=== PATIENT | female | born 1940 | race American Indian/Alaskan Native ===

== ENCOUNTER 2017-05-30 08:28 | Outpatient (CLI) | payer MEDICARE ==
--- NOTE | 2017-05-30 09:41 | XRay Report ---
Left shoulder 2 views: History: Shoulder pain. Findings: There is comminuted fracture noted neck of left humerus. No dislocation at the glenohumeral joint. Impression: Comminuted fracture neck of left humerus.
--- NOTE | 2017-05-30 09:42 | XRay Report ---
Left forearm: History: Left forearm pain. Findings: No fracture periosteal reaction lytic lesion. Impression: Essentially negative left forearm.
--- NOTE | 2017-05-30 09:43 | XRay Report ---
Left elbow 2 views: History: Elbow pain. Findings: No articular abnormality. No fracture dislocation or soft tissue calcification. Impression: Essentially negative left elbow.
--- NOTE | 2017-05-30 09:44 | XRay Report ---
Left wrist 3 views: History: Pain. Findings: There is arthritic change is noted in the first carpometacarpal joint. The radiocarpal joint appears unremarkable. No significant arthritic arthritic changes of the intercarpal joints. No soft tissue calcification. Impression: Arthritic changes in the first carpometacarpal joint.
== END 2017-05-30 08:29 | disposition home or self-care (01) ==
LOC: SPVIMAG 08:28
PROVIDERS: ATTEND Orthopaedic Surgery
DX: S42.212A Unspecified displaced fracture of surgical neck of left humerus, initial encounter for closed fracture (principal); M18.9 Osteoarthritis of first carpometacarpal joint, unspecified; M25.522 Pain in left elbow; M79.632 Pain in left forearm; X58.XXXA Exposure to other specified factors, initial encounter; Y93.89 Activity, other specified; Y92.89 Other specified places as the place of occurrence of the external cause; Y99.8 Other external cause status

== ENCOUNTER 2018-04-21 15:18 | Outpatient (CLI) | payer MEDICARE ==
--- NOTE | 2018-04-21 18:45 | Vascular Lab Report ---
FINAL REPORT EXAM: VL VENOUS DUPLEX LE LT HISTORY: DVT, LEFT LEG ACUTE EMB 77-year-old female with swelling in left foot, calf edema Comparison: None TECHNIQUE: Longitudinal and transverse grayscale, color, and Doppler sonographic images of the left lower extremity were performed from the groin to the infrapopliteal region. FINDINGS: The deep venous system is anechoic with normal respiratory variability and augmentation at all levels from the groin to the popliteal region. The infrapopliteal region is difficult to see due to edema w ithin the superficial calf vasculature. There are echogenic foci along the slade of the proximal greater saphenous vein. The saphenofemoral junction is clear. IMPRESSION: No acute left lower extremity deep venous thrombosis from the groin to the popliteal region. The infr apopliteal region is obscured by superficial calf edema. Echogenic foci along the proximal greater saphenous vein slade suggestive of recanalized or old throm bus with calcification of the slade. Saphenofemoral junction is clear.
== END 2018-04-21 15:19 | disposition home or self-care (01) ==
LOC: VAS 15:18
PROVIDERS: ATTEND Podiatrist Foot Surgery
DX: I82.4Z2 Acute embolism and thrombosis of unspecified deep veins of left distal lower extremity (principal); R60.9 Edema, unspecified; I10 Essential (primary) hypertension; Z87.891 Personal history of nicotine dependence

== ENCOUNTER 2019-08-13 19:32 | Emergency (ER) | payer MEDICARE ==
--- NOTE | 2019-08-13 20:19 | Emergency Department Report ---
ED General Adult HPI - General Chief complaint: Extremity Problem,Nontraumatic Stated complaint: EDEMA,LOWER EXTREMITES PUI?: No Time Seen by Provider: 08/13/19 20:04 Source: patient, EMS ( EMS documentation not available at time of chart dictation ), RN notes reviewed Mode of arrival: Stretcher Limitations: Physical Limitation - History of Present Illness Initial comments: Primary care doctor: Dr. Garcia The patient is a pleasant 79-year-old female with a history of hypertension, presenting to the ER today with complaints of nontraumatic painless bilateral lower extremity, present x1 month. She endorses that her primary care doctor discontinued her Lasix therapy. She denies recent travel, surgery, and prolonged immobilization. She denies physical pain at this time. There is no complaint of headache, neck pain, chest pain, abdominal pain, shortness of breath, urinary symptoms, and she denies hematemesis and bright red blood per rectum. Bilateral lower extremity swelling has been constant, does not radiate anywhere, does not have exacerbating or relieving factors that she is aware of. -: Gradual Location: left, right, lower extremity Consistency: constant Improves with: none Worsens with: none Associated Symptoms: denies other symptoms - Related Data Home Medications Medication Instructions Recorded Confirmed Last Taken hydrALAZINE [Apresoline] 50 mg PO Q12H 01/02/14 08/13/19 Unknown carvediloL [Coreg] 3.125 mg PO QDAY 08/13/19 08/13/19 Unknown Previous Rx's Medication Instructions Recorded Last Taken Type Furosemide [Lasix] 20 mg PO QDAY #14 tablet 08/13/19 Unknown Rx Allergies Allergy/AdvReac Type Severity Reaction Status Date / Time No Known Allergies Allergy Unverified 01/02/14 17:18 ED Review of Systems ROS: Stated complaint: EDEMA,LOWER EXTREMITES Other details as noted in HPI Constitutional: denies: fever Eyes: denies: eye discharge ENT: denies: congestion Respiratory: denies: shortness of breath, wheezing Cardiovascular: edema. denies: chest pain, palpitations, orthopnea Gastrointestinal: denies: abdominal pain, nausea, vomiting Genitourinary: as per HPI Musculoskeletal: as per HPI Skin: as per HPI Neurological: as per HPI Psychiatric: as per HPI Hematological/Lymphatic: as per HPI ED Past Medical Hx - Past Medical History Previous Medical History?: Yes Hx Hypertension: Yes Hx Congestive Heart Failure: Yes Hx Diabetes: Yes Hx Dementia: Yes Additional medical history: high cholesterol - Surgical History Past Surgical History?: Yes Additional Surgical History: "heart surgery" - Social History Smoking Status: Current Every Day Smoker Substance Use Type: None - Medications Home Medications: Home Medications Medication Instructions Recorded Confirmed Last Taken Type hydrALAZINE [Apresoline] 50 mg PO Q12H 01/02/14 08/13/19 Unknown History Furosemide [Lasix] 20 mg PO QDAY #14 tablet 08/13/19 Unknown Rx carvediloL [Coreg] 3.125 mg PO QDAY 08/13/19 08/13/19 Unknown History ED Physical Exam - General Limitations: No Limitations General appearance: alert, in no apparent distress - Head Head exam: Present: atraumatic, normocephalic - Eye Eye exam: Present: normal appearance, EOMI. Absent: nystagmus - ENT ENT exam: Present: normal exam, normal orophraynx, mucous membranes moist, normal external ear exam - Neck Neck exam: Present: normal inspection, full ROM. Absent: tenderness, meningismus - Respiratory Respiratory exam: Present: normal lung sounds bilaterally. Absent: respiratory distress - Cardiovascular Cardiovascular Exam: Present: regular rate, normal rhythm, normal heart sounds. Absent: bradycardia, tachycardia, irregular rhythm, systolic murmur, diastolic murmur, rubs, gallop, JVD - GI/Abdominal GI/Abdominal exam: Present: soft. Absent: distended, tenderness, guarding, rebound, rigid, pulsatile mass - Extremities Exam Extremities exam: Present: normal inspection, full ROM, pedal edema (3-4+ edema noted in the bilateral lower extremities), other (2+ pulses noted in the bilateral upper and lower extremities. There is no palpable cord. negative Homans sign. Muscular compartments are soft. The pelvis is stable.). Absent: calf tenderness - Back Exam Back exam: Present: normal inspection, full ROM. Absent: tenderness, CVA tenderness (R), CVA tenderness (L), paraspinal tenderness, vertebral tenderness - Neurological Exam Neurological exam: Present: alert, oriented X3, other (No facial droop. Tongue midline. Extraocular movements intact bilaterally. Facial sensation intact to light touch in V1, V2, V3 distribution bilaterally. 5 and a 5 strength in 4 extremities. Sensation intact to light touch in 4 extremities.). Absent: motor sensory deficit - Psychiatric Psychiatric exam: Present: normal affect, normal mood - Skin Skin exam: Present: warm, dry, intact, normal color. Absent: rash ED Course Vital Signs 08/13/19 08/13/19 08/13/19 19:42 19:46 20:00 Temperature 98.6 F Pulse Rate 69 68 67 Respiratory 14 12 15 Rate Blood Pressure 171/62 Blood Pressure 173/66 [right arm] O2 Sat by Pulse 97 96 95 Oximetry ED Medical Decision Making - Lab Data Result diagrams: 08/13/19 20:21 08/13/19 20:21 Vital Signs 08/13/19 08/13/19 08/13/19 19:42 19:46 20:00 Temperature 98.6 F Pulse Rate 69 68 67 Respiratory 14 12 15 Rate Blood Pressure 171/62 Blood Pressure 173/66 [right arm] O2 Sat by Pulse 97 96 95 Oximetry Lab Results 08/13/19 08/13/19 Range/Units 20:21 20:21 Hgb 8.3 L (10.1-14.3) gm/dl Hct 26.7 L (30.3-42.9) % Plt Count 206 (140-440) K/mm3 Sodium 137 (137-145) mmol/L Potassium 5.2 H (3.6-5.0) mmol/L Chloride 110.3 H (98-107) mmol/L Carbon Dioxide 17 L (22-30) mmol/L Anion Gap 15 mmol/L BUN 32 H (7-17) mg/dL Creatinine 1.8 H (0.7-1.2) mg/dL Estimated GFR 33 ml/min BUN/Creatinine Ratio 18 % Glucose 95 (65-100) mg/dL Calcium 8.5 (8.4-10.2) mg/dL Magnesium 2.30 (1.7-2.3) mg/dL Total Bilirubin 0.30 (0.1-1.2) mg/dL AST 14 (5-40) units/L ALT 12 (7-56) units/L Alkaline Phosphatase 92 (35-129) units/L Total Creatine Kinase 105 (30-135) units/L Total Protein 5.9 L (6.3-8.2) g/dL Albumin 3.5 L (3.9-5) g/dL Albumin/Globulin Ratio 1.5 % - EKG Data -: EKG Interpreted by Ne EKG shows normal: sinus rhythm Rate: normal - EKG Data 08/13/19 21:38 Sinus rhythm, 69 bpm, left axis deviation, low voltage, poor R wave progression, Q waves noted in the anteroseptal leads, and inferior leads, this EKG is abnormal, it is not a STEMI There is low voltage. The QTC is prolonged. The RI interval is within normal limits - Radiology Data Radiology results: report reviewed, image reviewed Print Report Referring Physician: MARIBETH MULLEN Patient Name: NORA OROURKE Date of : 1940 Sex: Female Report Date: 2019-08-13 Report Status: Finalized Findings [facility] [address] [place] [address] XRay Report Signed Patient: NORA OROURKE MR#: [id number] : 1940 Acct:[id number] Age/Sex: 79 / F ADM Date: 08/13/19 Loc: ED Attending Dr: Ordering Physician: MARIBETH MULLEN MD Date of Service: 08/13/19 Procedure(s): XR chest 1V ap Accession Number(s): [id number] cc: MARIBETH MULLEN MD Fluoro Time In Minutes: CHEST 1 VIEW 8:23 PM INDICATION / CLINICAL INFORMATION: Lower extremity swelling. COMPARISON: None available. FINDINGS: SUPPORT DEVICES: None. HEART / MEDIASTINUM: There is a median sternotomy. The heart is mildly enlarged. There is mild prominence of the central pulmonary vessels. LUNGS / PLEURA: Interstitial lung markings are mildly increased in the perihilar regions/central lungs. No pneumothorax. ADDITIONAL FINDINGS: There is old healed fracture deformity of the left humeral neck/proximal shaft. IMPRESSION: Possible mild congestive heart failure. Signer Name: Gumaro Griffiths MD Signed: 08/13/2019 9:02 PM Workstation Name: [id number] Transcribed By: RT Dictated By: Gumaro Griffiths MD Electronically Authenticated By: Gumaro Griffiths MD Signed Date/Time: 08/13/192101 DD/ 00 TD/TT: - Medical Decision Making Differential diagnosis, including but not limited to: Dependent edema, renal insufficiency, hepatic insufficiency, congestive heart failure, cardiorenal syndrome, anemia of chronic disease Assessment and plan: 79-year-old female, with a complaint of painless bilateral lower extremity swelling x1 month, in the context of having her diuretic discontinued by her primary care doctor. She is not currently tachycardic, tachypneic or hypoxic, she does not have crackles or rales, and she is saturating at 97% on room air, without orthopnea. Nevertheless, laboratory studies have demonstrated renal insufficiency, acidosis, anemia of uncertain chronicity, and x-ray of the chest has suggested cardiomegaly with congestive heart failure. Suspect multiple things, including possible cardiorenal syndrome. Went back and discussed these findings with the patient. I have advised admission to the medical service for diuresis, medical optimization for the aforementioned. The patient is refusing/declining admission. She will therefore be treated with oral Lasix, and discharge AGAINST MEDICAL ADVICE, with close instructions to follow-up with her outpatient primary care doctor or local fishing lure assembler. The patient is alert and oriented x3, clinically sober, and exhibits decision- making capacity. The risks of leaving, including , disability, paralysis, loss of quality of life were discussed with the patient, and she verbalizes understanding in her own words. She understands that she can return to the emergency room right away if and when she changes her mind. This conversation is witnessed by nurse Juan Woods Critical care attestation.: If time is entered above; I have spent that time in minutes in the direct care of this critically ill patient, excluding procedure time. ED Disposition Clinical Impression: Edema, TIFFNAI (acute kidney injury), Anemia Disposition: DC-07 LEFT AGAINST MED ADVICE Is pt being admited?: No Does the pt Need Aspirin: No Condition: Undetermined Additional Instructions: As we discussed, you have left the hospital/emergency room AGAINST MEDICAL ADVICE. By leaving, you risked , disability, paralysis, permanent loss of quality of life. The ER is open 24 hours a day, 7 days a week. It never closes. Please return to the emergency room right away if and when you change your mind. If you decide not to return to the emergency room, please follow-up with the listed physician referrals as soon as possible. Please take the Lasix medication as directed. Avoid consumption of Motrin, ibuprofen, Naprosyn, Aleve. Patient may take a baby aspirin [id number], 81 mg by mouth, daily. Please follow-up as soon as possible with your primary care doctor or a local fishing lure assembler. Please return to the emergency room right away with new, worsened or different symptoms, or symptoms not present on the initial emergency room evaluation. Have a primary care doctor or fishing lure assembler contact the medical records department to obtain copies of laboratory studies, EKG, X-ray report to follow-up. Prescriptions: Furosemide [Lasix] 20 mg PO QDAY #14 tablet Referrals: JULIANO GARCIA MD [Primary Care Provider] - [facility] [Provider Group] - [facility]
[2019-08-13 20:47] LABS: Hematocrit 26.7 % (30.3-42.9); Hemoglobin 8.3 gm/dl (10.1-14.3)
[2019-08-13 20:51] LABS: Albumin 3.5 g/dL (3.9-5); Calcium 8.5 mg/dL (8.4-10.2)
--- NOTE | 2019-08-13 21:06 | XRay Report ---
CHEST 1 VIEW 8:23 PM INDICATION / CLINICAL INFORMATION: Lower extremity swelling. COMPARISON: None available. FINDINGS: SUPPORT DEVICES: None. HEART / MEDIASTINUM: There is a median sternotomy. The heart is mildly enlarged. There is mild promin ence of the central pulmonary vessels. LUNGS / PLEURA: Interstitial lung markings are mildly increased in the perihilar regions/central lung s. No pneumothorax. ADDITIONAL FINDINGS: There is old healed fracture deformity of the left humeral neck/proximal shaft. IMPRESSION: Possible mild congestive heart failure. Signer Name: Gumaro Griffiths MD Signed: 08/13/2019 9:02 PM Workstation Name: [id number]
[2019-08-13] MEDS ORDERED: ASPIRIN 325 MG TAB PO ONE (21:14)
[2019-08-13] MEDS ORDERED: FUROSEMIDE 20 MG/2 ML INJ IV ONE (21:14)
[2019-08-13] MEDS ORDERED: FUROSEMIDE 20 MG TAB PO ONE (21:18)
[2019-08-13 22:36] VITALS: BP 177/59
== END 2019-08-13 22:34 | disposition left against medical advice (07) ==
LOC: ED 19:32
DX: N17.9 Acute kidney failure, unspecified (principal); D64.9 Anemia, unspecified; R60.0 Localized edema; I11.0 Hypertensive heart disease with heart failure; I50.9 Heart failure, unspecified; E78.00 Pure hypercholesterolemia, unspecified; E11.9 Type 2 diabetes mellitus without complications; F03.90 Unspecified dementia, unspecified severity, without behavioral disturbance, psychotic disturbance, mood disturbance, and anxiety; F17.200 Nicotine dependence, unspecified, uncomplicated; Z79.899 Other long term (current) drug therapy; Z98.890 Other specified postprocedural states
CPT/HCPCS: 36415; 71045; 80053; 82550; 83735; 85014; 85018; 85049; 93005

== ENCOUNTER 2020-05-01 19:21 | Inpatient (IN) | payer MEDICARE ==
[2020-05-01] MEDS ORDERED: ALBUTEROL 2.5 MG/3 ML NEBU IH ONE (19:58)
--- NOTE | 2020-05-01 20:13 | Emergency Department Report ---
HPI - General Time Seen by Provider: 05/01/20 19:57 - HPI HPI: 79-year-old female presents from [facility] with a past medical history of chronic renal insufficiency, type 2 diabetes, COPD, CHF, and dementia presents with abnormal labs. Patient had lab results from today showing hyperkalemia worsening renal insufficiency. Patient had labs performed yesterday showing potassium 5.8, BUN 74, creatinine 4.4, sodium 168, chloride 134 and was subsequently treated with 2 L of normal saline at 100 mL/h, Kayexalate 15 g x 2 and her Lasix and spironolactone were put on hold. Labs were repeated today and revealed a potassium of 6.4, BUN 116, creatinine 3.0, sodium 141, chloride 112 despite treatment provided at long-term therefore patient was sent to the ER for evaluation. Patient was also noted to have a hemoglobin of 7.2. Chest x-ray performed April 29 did not show any acute cardiopulmonary disease. MT also documented a secondary diagnosis of COVID via PCR on 04/21. Patient is alert and oriented to self, place, but not to year. She denies any physical complaints including shortness of breath or pain. ED Past Medical Hx - Past Medical History Hx Hypertension: Yes Hx Congestive Heart Failure: Yes Hx Diabetes: Yes Hx Renal Disease: Yes Hx COPD: Yes Hx Dementia: Yes Additional medical history: high cholesterol - Surgical History Additional Surgical History: "heart surgery" - Social History Smoking Status: Never Smoker Substance Use Type: None - Medications Home Medications: Home Medications Medication Instructions Recorded Confirmed Last Taken Type hydrALAZINE [Apresoline TAB] 50 mg PO TID 01/02/14 08/16/19 08/15/19 History Furosemide [Lasix TAB] 20 mg PO QDAY #14 tablet 08/13/19 08/16/19 08/15/19 Rx carvediloL [Coreg] 3.125 mg PO BID 08/13/19 08/16/19 08/15/19 History Aspirin EC 81 mg PO DAILY 08/16/19 08/16/19 08/15/19 History Clopidogrel [Plavix] 75 mg PO DAILY 08/16/19 08/16/19 08/15/19 History Aspirin [Aspirin BABY CHEW TAB] 81 mg PO QDAY #30 tab.chew 08/18/19 Unknown Rx Simvastatin 40 mg PO QHS #30 tablet 08/18/19 Unknown Rx Spironolactone [Aldactone] 25 mg PO QDAY #30 tablet 08/18/19 Unknown Rx carvediloL [Coreg] 6.25 mg PO BID #60 tablet 08/18/19 Unknown Rx Acetaminophen [Acetaminophen TAB] 650 mg PO Q4H PRN tablet 03/12/20 Unknown Rx Magnesium Hydroxide [Milk of 30 ml PO Q4H PRN oral.liqd 03/12/20 Unknown Rx Magnesia] ED Review of Systems ROS: Stated complaint: ELEVATED POTASSIUM Other details as noted in HPI Comment: Unobtainable due to pts medical conditions Physical Exam - Physical Exam Physical Exam: General: No acute distress Head: Atraumatic Eyes: normal appearance ENT: Moist mucous membranes Neck: Normal appearance, no midline tenderness Chest: Clear to auscultation bilaterally CV: Regular rate and rhythm Abdomen: Soft, normal bowel sounds, nontender, nondistended, no rebound or guarding Back: Normal inspection Extremity: Normal inspection, full range of motion Neuro: Alert O x 2, no facial asymmetry, speech clear, no gross motor sensory deficit Psych: Appropriate behavior Skin: No rash ED Course - Reevaluation(s) Reevaluation #1: 05/01/20 21:44 bp improved upon recheck, no hypotension. repeat bp normal prior to IVF administration. - Consultations Consultation #1: 05/01/20 21:[address] Sandoval nephrology (consulted on previous inpatient admission) ED Medical Decision Making - Lab Data Result diagrams: 05/01/20 20:27 05/01/20 20:27 Lab Results 05/01/20 05/01/20 05/01/20 Range/Units 20:27 20:27 20:27 WBC 4.8 (4.5-11.0) K/mm3 RBC 2.70 L (3.65-5.03) M/mm3 Hgb 8.7 L (10.1-14.3) gm/dl Hct 27.1 L (30.3-42.9) % MCV 100 H (79-97) fl MCH 32 (28-32) pg MCHC 32 (30-34) % RDW 14.0 (13.2-15.2) % Plt Count 300 (140-440) K/mm3 Add Manual Diff Complete Total Counted 100 Seg Neutrophils % Mail Room Clerk Lymphocytes % (Manual) 3.0 L (13.4-35.0) % Monocytes % (Manual) 1.0 (0.0-7.3) % Nucleated RBC % Not Reportable Seg Neutrophils # Man 4.6 (1.8-7.7) K/mm3 Band Neutrophils # 0.0 K/mm3 Lymphocytes # (Manual) 0.1 L (1.2-5.4) K/mm3 Abs React Lymphs (Man) 0.0 K/mm3 Monocytes # (Manual) 0.0 (0.0-0.8) K/mm3 Eosinophils # (Manual) 0.0 (0.0-0.4) K/mm3 Basophils # (Manual) 0.0 (0.0-0.1) K/mm3 Metamyelocytes # 0.0 K/mm3 Myelocytes # 0.0 K/mm3 Promyelocytes # 0.0 K/mm3 Blast Cells # 0.0 K/mm3 WBC Morphology Not Reportable Hypersegmented Neuts Not Reportable Hyposegmented Neuts Not Reportable Hypogranular Neuts Not Reportable Smudge Cells Not Reportable Toxic Granulation Not Reportable Toxic Vacuolation Not Reportable Dohle Bodies Not Reportable Pelger-Huet Anomaly Not Reportable Taurus Rods Not Reportable Platelet Estimate Consistent w auto Clumped Platelets Not Reportable Plt Clumps, EDTA Not Reportable Large Platelets Not Reportable Giant Platelets Not Reportable Platelet Satelliting Not Reportable Plt Morphology Comment Not Reportable RBC Morphology Not Reportable Dimorphic RBCs Not Reportable Polychromasia Not Reportable Hypochromasia Not Reportable Poikilocytosis Not Reportable Anisocytosis Not Reportable Microcytosis Not Reportable Macrocytosis Not Reportable Spherocytes Not Reportable Pappenheimer Bodies Not Reportable Sickle Cells Not Reportable Target Cells Not Reportable Tear Drop Cells Few Ovalocytes Rare Helmet Cells Rare [place] Bodies Not Reportable [place] Rings Not Reportable Martin Cells Rare Bite Cells Rare Crenated Cell Not Reportable Elliptocytes Not Reportable Acanthocytes (Spur) Rare Rouleaux Not Reportable Hemoglobin C Crystals Not Reportable Schistocytes Not Reportable Malaria parasites Not Reportable Hesham Bodies Not Reportable Hem Pathologist Commnt No PT 12.4 (12.2-14.9) Sec. INR 0.94 (0.87-1.13) APTT 27.0 (24.2-36.6) Sec. Sodium 140 (137-145) mmol/L Potassium 6.1 H* (3.6-5.0) mmol/L Chloride 109.2 H (98-107) mmol/L Carbon Dioxide 16 L (22-30) mmol/L Anion Gap 21 mmol/L BUN 111 H (7-17) mg/dL Creatinine 2.8 H (0.6-1.2) mg/dL Estimated GFR 20 ml/min BUN/Creatinine Ratio 40 % Glucose 160 H (65-100) mg/dL Calcium 8.5 (8.4-10.2) mg/dL Blood Type Antibody Screen 05/01/20 Range/Units 20:27 WBC (4.5-11.0) K/mm3 RBC (3.65-5.03) M/mm3 Hgb (10.1-14.3) gm/dl Hct (30.3-42.9) % MCV (79-97) fl MCH (28-32) pg MCHC (30-34) % RDW (13.2-15.2) % Plt Count (140-440) K/mm3 Add Manual Diff Total Counted Seg Neutrophils % Lymphocytes % (Manual) (13.4-35.0) % Monocytes % (Manual) (0.0-7.3) % Nucleated RBC % Seg Neutrophils # Man (1.8-7.7) K/mm3 Band Neutrophils # K/mm3 Lymphocytes # (Manual) (1.2-5.4) K/mm3 Abs React Lymphs (Man) K/mm3 Monocytes # (Manual) (0.0-0.8) K/mm3 Eosinophils # (Manual) (0.0-0.4) K/mm3 Basophils # (Manual) (0.0-0.1) K/mm3 Metamyelocytes # K/mm3 Myelocytes # K/mm3 Promyelocytes # K/mm3 Blast Cells # K/mm3 WBC Morphology Hypersegmented Neuts Hyposegmented Neuts Hypogranular Neuts Smudge Cells Toxic Granulation Toxic Vacuolation Dohle Bodies Pelger-Huet Anomaly Taurus Rods Platelet Estimate Clumped Platelets Plt Clumps, EDTA Large Platelets Giant Platelets Platelet Satelliting Plt Morphology Comment RBC Morphology Dimorphic RBCs Polychromasia Hypochromasia Poikilocytosis Anisocytosis Microcytosis Macrocytosis Spherocytes Pappenheimer Bodies Sickle Cells Target Cells Tear Drop Cells Ovalocytes Helmet Cells [place] Bodies [place] Rings [place] Cells Bite Cells Crenated Cell Elliptocytes Acanthocytes (Spur) Rouleaux Hemoglobin C Crystals Schistocytes Malaria parasites Hesham Bodies Hem Pathologist Commnt PT (12.2-14.9) Sec. INR (0.87-1.13) APTT (24.2-36.6) Sec. Sodium (137-145) mmol/L Potassium (3.6-5.0) mmol/L Chloride (98-107) mmol/L Carbon Dioxide (22-30) mmol/L Anion Gap mmol/L BUN (7-17) mg/dL Creatinine (0.6-1.2) mg/dL Estimated GFR ml/min BUN/Creatinine Ratio % Glucose (65-100) mg/dL Calcium (8.4-10.2) mg/dL Blood Type O POSITIVE Antibody Screen Negative - EKG Data -: EKG Interpreted by Me (LVH) EKG shows normal: sinus rhythm, ST-T waves (Peak T waves) Rate: bradycardia (56) - Radiology Data Radiology results: report reviewed (cxr naf) - Medical Decision Making 79-year-old female presents to the hospital with abnormal lab findings of acute on chronic renal sufficiency, uremia likely secondary to dehydration, and hyperkalemia with metabolic acidosis. Patient received albuterol, Kayexalate, and normal saline, insulin, glucose, calcium gluconate in the ED. peak T waves seen on EKG. Initial low blood pressure measurement improved without intervention therefore IV fluids changed from 1 L bolus to 150 mL/h. Case discussed with toy assembler wood Dr. Sandoval who is familiar with the patient. Rn Diabetes Educator to order bicarb drip. Patient had a Covid positive test 10 days ago and therefore repeat testing ordered for tomorrow and patient placed on isolation until results are available. Case discussed with hospitalist for admission. Critical Care Time: Yes Critical care time in (mins) excluding proc time.: 35 Critical care attestation.: If time is entered above; I have spent that time in minutes in the direct care of this critically ill patient, excluding procedure time. ED Disposition Clinical Impression: Acute on chronic renal failure, Dehydration, Uremia, Hyperkalemia, Anemia, History of CHF (congestive heart failure), Dementia, History of COVID-19 Disposition: DC-09 OP ADMIT IP TO THIS HOSP Is pt being admited?: Yes Condition: Stable Time of Disposition: 21:33
[2020-05-01] MEDS ORDERED: SODIUM CHLORIDE 0.9% 1000 ML 1,000 ML IV ONE (20:34)
[2020-05-01] MEDS ORDERED: SODIUM BICARB 8.4% 50 MEQ/50 ML SYRINGE IV ONE ×2 (20:36→21:50)
[2020-05-01 20:45] LABS: Hematocrit 27.1 % (30.3-42.9); Hemoglobin 8.7 gm/dl (10.1-14.3); Mean Corpuscular HGB Conc 32 % (30-34); Mean Corpuscular Volume 100 fl (79-97); Platelet Count 300 K/mm3 (140-440)
--- NOTE | 2020-05-01 20:52 | XRay Report ---
CHEST 1 VIEW 05/01/2020 7:45 PM INDICATION / CLINICAL INFORMATION: acute on chronic renal failure, covid +. COMPARISON: 03/06/2020 FINDINGS: SUPPORT DEVICES: None. HEART / MEDIASTINUM: Stable postsurgical change from median sternotomy with normal heart size. LUNGS / PLEURA: No significant pulmonary or pleural abnormality. No pneumothorax. ADDITIONAL FINDINGS: Unchanged chronic left proximal humeral fracture. IMPRESSION: 1. No acute findings. Signer Name: Juan Woods MD Signed: 05/01/2020 8:47 PM Workstation Name: [id number]
[2020-05-01 20:56] LABS: INR 0.94 (0.87-1.13)
[2020-05-01 21:00] LABS: Calcium 8.5 mg/dL (8.4-10.2)
[2020-05-01] MEDS ORDERED: CALCIUM GLUCONATE 1,000 MG in SODIUM CHLORIDE 0.9% 100 ML IV ONE (21:07)
[2020-05-01] MEDS ORDERED: SODIUM POLYSTYRENE 15 GM/60 ML ORAL LIQD PO ONE (21:07)
[2020-05-01] MEDS ORDERED: DEXTROSE 50% IN WATER (25GM) 50 ML SYRINGE IV ONE (21:08)
[2020-05-01] MEDS ORDERED: INSULIN REGULAR, HUMAN 100 UNIT/ML 3ML VIAL IV ONE (21:08)
[2020-05-01] MEDS ORDERED: INSULIN REGULAR, HUMAN 100 UNITS/1 ML ONE (21:40)
[2020-05-01] MEDS ORDERED: SODIUM BICARBONATE 150 MEQ in WATER FOR INJECTION (PF) 1,000 ML IV SCH (22:00)
[2020-05-01] MEDS ORDERED: DEXTROSE 50% IN WATER (25GM) 50 ML SYRINGE IV PRN ×2 (22:21→22:27)
[2020-05-01] MEDS ORDERED: ACETAMINOPHEN 325 MG TAB PO PRN (22:21)
[2020-05-01] MEDS ORDERED: ONDANSETRON 4 MG/2 ML INJ IV PRN (22:21)
[2020-05-01 22:23] LABS: Total Cells Counted 100
[2020-05-01 22:24] LABS: Burr Cells Rare; Ovalocytes Rare
[2020-05-01 22:25] LABS: Tear Drop Cells Few
[2020-05-01 22:30] LABS: Helmet Cells Rare
[2020-05-01 22:31] LABS: Bite Cells Rare; Platelet Estimate Consistent w Auto
--- NOTE | 2020-05-01 22:34 | History and Physical Report ---
History of Present Illness Date of examination: 05/01/20 Date of admission: 05/01/20 21:47 Chief complaint: Acute on chronic renal failure Hyperkalemia COVID-19 infection History of present illness: 79-year-old female with a past medical history of chronic renal insufficiency, type 2 diabetes, COPD, CHF, and dementia was brought to the emergency room from [facility] care with abnormal labs. Patient had lab results from today showing hyperkalemia worsening renal insufficiency. Patient had labs performed yesterday showing potassium 5.8, BUN 74, creatinine 4.4, sodium 168, chloride 134 and was subsequently treated with 2 L of normal saline at 100 mL/h, Kayexalate 15 g x 2 and her Lasix and spironolactone were put on hold. Labs were repeated today and revealed a potassium of 6.4, BUN 116, creatinine 3.0, sodium 141, chloride 112 despite treatment provided at senior care therefore patient was sent to the ER for evaluation. Patient was also noted to have a hemoglobin of 7.2. [place] also documented a secondary diagnosis of COVID via PCR on 04/21. Chest x-ray performed April 29 did not show any acute cardiopulmonary disease. Past History Past Medical History: COPD, diabetes, heart failure, renal failure Family history: diabetes Medications and Allergies Allergies Allergy/AdvReac Type Severity Reaction Status Date / Time No Known Allergies Allergy Unverified 01/02/14 17:18 Home Medications Medication Instructions Recorded Confirmed Last Taken Type hydrALAZINE [Apresoline TAB] 50 mg PO TID 01/02/14 08/16/19 08/15/19 History Furosemide [Lasix TAB] 20 mg PO QDAY #14 tablet 08/13/19 08/16/19 08/15/19 Rx carvediloL [Coreg] 3.125 mg PO BID 08/13/19 08/16/19 08/15/19 History Aspirin EC 81 mg PO DAILY 08/16/19 08/16/19 08/15/19 History Clopidogrel [Plavix] 75 mg PO DAILY 08/16/19 08/16/19 08/15/19 History Aspirin [Aspirin BABY CHEW TAB] 81 mg PO QDAY #30 tab.chew 08/18/19 Unknown Rx Simvastatin 40 mg PO QHS #30 tablet 08/18/19 Unknown Rx Spironolactone [Aldactone] 25 mg PO QDAY #30 tablet 08/18/19 Unknown Rx carvediloL [Coreg] 6.25 mg PO BID #60 tablet 08/18/19 Unknown Rx Acetaminophen [Acetaminophen TAB] 650 mg PO Q4H PRN tablet 03/12/20 Unknown Rx Magnesium Hydroxide [Milk of 30 ml PO Q4H PRN oral.liqd 03/12/20 Unknown Rx Magnesia] Active Meds: Active Medications Acetaminophen (Acetaminophen 325 Mg Tab) 650 mg PO Q4H PRN PRN Reason: Pain MILD(1-3)/Fever >100.5/MERINO Albuterol/Ipratropium (Ipratropium/Albuterol Sulfate 3 Ml Ampul.Neb) 1 ampul IH Q6HRT KIMMY Dextrose (Dextrose 50% In Water (25gm) 50 Ml Syringe) 50 ml IV Q30MIN PRN; Protocol PRN Reason: Hypoglycemia Dextrose (Dextrose 50% In Water (25gm) 50 Ml Syringe) 50 ml IV Q30MIN PRN; Protocol PRN Reason: Hypoglycemia Famotidine (Famotidine 20 Mg/2 Ml Inj) 20 mg IV BID KIMMY Sodium Bicarbonate 150 meq/ (Sterile Water) 1,150 mls @ 75 mls/hr IV DIRECT KIMMY Sodium Chloride (Nacl 0.45% 1000 Ml) 1,000 mls @ 100 mls/hr IV DIRECT KIMMY Ceftriaxone Sodium (Rocephin/Ns 2 Gm/100 Ml) 2 gm in 100 mls @ 200 mls/hr IV Q24H KIMMY; Protocol Azithromycin (Zithromax/Ns) 500 mg in 250 mls @ 250 mls/hr IV Q24H KIMMY; Protocol Insulin Human Lispro (Insulin Lispro 100 Unit/Ml Vial 3 Ml) 0 unit SUB-Q ACHS KIMMY; Protocol Ondansetron HCl (Ondansetron 4 Mg/2 Ml Inj) 4 mg IV Q8H PRN PRN Reason: Nausea And Vomiting Sodium Chloride (Sodium Chloride 0.9% 10 Ml Flush Syringe) 10 ml IV BID KIMMY Sodium Chloride (Sodium Chloride 0.9% 10 Ml Flush Syringe) 10 ml IV PRN PRN PRN Reason: LINE FLUSH Sodium Polystyrene Sulfonate (Sodium Polystyrene 15 Gm/60 Ml Oral Liqd) 30 gm PO Q6HR KIMMY Stop: 05/02/20 12:01 Review of Systems Constitutional: lethargy, poor appetite Breasts: normal Exam - Constitutional Vitals: Temp Pulse Resp BP Pulse Ox 97.7 F 56 L 18 137/37 96 05/01/20 21:20 05/01/20 21:34 05/01/20 21:34 05/01/20 21:20 05/01/20 21:20 General appearance: Present: mild distress - EENT Eyes: Present: PERRL ENT: hearing intact, clear oral mucosa - Neck Neck: Present: supple, normal ROM - Respiratory Respiratory effort: normal Respiratory: bilateral: CTA, diminished - Cardiovascular Heart Sounds: Present: S1 & S2. Absent: rub, click - Extremities Extremities: pulses symmetrical, No edema Peripheral Pulses: within normal limits - Abdominal General gastrointestinal: Present: soft, non-tender, non-distended, normal bowel sounds Female genitourinary: Present: normal - Integumentary Integumentary: Present: clear, warm, dry - Musculoskeletal Musculoskeletal: gait normal, strength equal bilaterally - Psychiatric Psychiatric: appropriate mood/affect, intact judgment & insight - Neurologic Neurologic: CNII-XII intact, moves all extremities Results - Labs CBC & Chem 7: 05/01/20 20:27 05/01/20 20:27 Labs: Laboratory Last Values WBC 4.8 K/mm3 (4.5-11.0) 05/01/20 20: RBC 2.70 M/mm3 (3.65-5.03) L 05/01/20 20:27 Hgb 8.7 gm/dl (10.1-14.3) L 05/01/20 20:27 Hct 27.1 % (30.3-42.9) L 05/01/20 20:27 MCV 100 fl (79-97) H 05/01/20 20:27 MCH 32 pg (28-32) 05/01/20 20: MCHC 32 % (30-34) 05/01/20 20: RDW 14.0 % (13.2-15.2) 05/01/20 20: Plt Count 300 K/mm3 (140-440) 05/01/20 20:27 Seg Neutrophils % Physical Education Teacher 05/01/20 20:27 PT 12.4 Sec. (12.2-14.9) 05/01/20 20: INR 0.94 (0.87-1.13) 05/01/20 20:27 APTT 27.0 Sec. (24.2-36.6) 05/01/20 20:27 Sodium 140 mmol/L (137-145) 05/01/20 20:27 Potassium 6.1 mmol/L (3.6-5.0) H* 05/01/20 20:27 Chloride 109.2 mmol/L (98-107) H 05/01/20 20:27 Carbon Dioxide 16 mmol/L (22-30) L 05/01/20 20:27 Anion Gap 21 mmol/L 05/01/20 20:27 BUN 111 mg/dL (7-17) H 05/01/20 20:27 Creatinine 2.8 mg/dL (0.6-1.2) H 05/01/20 20: Estimated GFR 20 ml/min 05/01/20 20: BUN/Creatinine Ratio 40 % 05/01/20 20: Glucose 160 mg/dL (65-100) H 05/01/20 20: Calcium 8.5 mg/dL (8.4-10.2) 05/01/20 20:27 Blood Type O POSITIVE 05/01/20 20: Antibody Screen Negative 05/01/20 20:27 - Imaging and Cardiology Chest x-ray: image reviewed Assessment and Plan - Patient Problems (1) Acute on chronic kidney failure Current Visit: Yes Status: Acute Plan to address problem: Admit the patient to the IMCU. Half-normal saline at the rate of 100 cc/h. Avoid nephrotoxic drug. We consulted nephrology for further evaluation and treatment. Recheck CBC BMP in the morning (2) Dehydration Current Visit: Yes Status: Acute Plan to address problem: Half-normal saline at the rate of 100 cc/h. Avoid nephrotoxic drug. We consulted nephrology for further evaluation and treatment. Recheck CBC BMP in the morning (3) History of COVID-19 Current Visit: Yes Status: Acute Plan to address problem: Oxygen per nasal cannula 3 L/min. DuoNeb nebulizer every 4 hours as needed. Rocephin 1 g IV daily and Zithromax 500 mg IV daily. We will do the blood cult ure and sputum culture. Recheck CBC BMP in the morning. Please consult ID and pulmonary if needed (4) Hyperkalemia Current Visit: Yes Status: Acute Plan to address problem: Admit the patient to the IMCU. Half-normal saline at the rate of 100 cc/h. Avoid nephrotoxic drug. We consulted nephrology for further evaluation and treatment. We will treat the hyperkalemia as per protocol. insulin 10 units subcu x1 dose. D50 1 ampoule IV stat. Calcium gluconate 1 g IV x1 dose. Kayexalate 30 g p.o. every 6 hours x3 dose. Recheck CBC BMP in the morning (5) Uremia Current Visit: Yes Status: Acute Plan to address problem: Half-normal saline at the rate of 100 cc/h. Avoid nephrotoxic drug. We consulted nephrology for further evaluation and treatment. Recheck CBC BMP in the morning
[2020-05-01] MEDS ORDERED: ALBUTEROL 2.5 MG/3 ML NEBU IH PRN (22:39)
[2020-05-01] MEDS ORDERED: SODIUM CHLORIDE 0.45% 1000 ML 1,000 ML IV SCH (23:00)
[2020-05-01] MEDS ORDERED: FAMOTIDINE 20 MG/2 ML INJ IV SCH (23:00)
[2020-05-01] MEDS: FAMOTIDINE 20 MG/2 ML INJ IV SCH (23:10)
[2020-05-01] MEDS: cefTRIAXone/NS 2 GM/100 ML 2 GM/100 ML BAG IV SCH (23:22)
[2020-05-01] MEDS: AZITHROMYCIN/NS 500 MG/250 ML 500 MG/250 ML BAG IV SCH (23:48)
[2020-05-02] MEDS: SODIUM POLYSTYRENE 15 GM/60 ML ORAL LIQD PO SCH ×3 (00:07→16:47)
[2020-05-02] MEDS: IPRATROPIUM/ALBUTEROL SULFATE 3 ML AMPUL.NEB IH SCH ×5 (00:31→21:16)
[2020-05-02 06:22] LABS: Hematocrit 24.9 % (30.3-42.9); Hemoglobin 8.1 gm/dl (10.1-14.3); Lymphocytes # (Auto) 0.3 K/mm3 (1.2-5.4); Lymphocytes % (Auto) 4.5 % (13.4-35.0); Mean Corpuscular HGB Conc 33 % (30-34); Mean Corpuscular Volume 98 fl (79-97); Monocytes # (Auto) 0.5 K/mm3 (0.0-0.8); Monocytes % (Auto) 8.3 % (0.0-7.3); Platelet Count 268 K/mm3 (140-440); Red Blood Count 2.55 M/mm3 (3.65-5.03); Red Cell Distribution Width 13.9 % (13.2-15.2)
[2020-05-02 07:34] LABS: BUN/Creatinine Ratio 42; Blood Urea Nitrogen 108 mg/dL (7-17); Calcium 8.4 mg/dL (8.4-10.2)
[2020-05-02 07:35] LABS: Alanine Aminotransferase < 5 units/L (7-56); Albumin 3.3 g/dL (3.9-5); Hemolysis Index 4
[2020-05-02] MEDS: INSULIN LISPRO 100 UNIT/ML VIAL 3 mL SUB-Q SCH ×4 (08:22→22:56)
[2020-05-02] MEDS: FAMOTIDINE 20 MG/2 ML INJ IV SCH ×2 (10:16→23:32)
--- NOTE | 2020-05-02 13:50 | Consultation ---
History of Present Illness - Reason for Consult Consult date: 05/02/20 acute renal failure, chronic renal failure - History of Present Illness The patient is an 79 YO female well known to our service with history significant for Hypertension, DM type 2, CHF, chronic LE edema, COPD, Dementia, CKD stage 3-4 and medication non-compliance who presented to [facility] ED 05/01 from [place] for evaluation of abnormal labs. Patient is a very poor historian and most of the information was obtained from prior notes. Patient had labs done at [place] that showed Potassium 5.8, BUN 74, creatinine 4.4, sodium ?168, chloride 134 and was subsequently treated with 2 L of normal saline at 100 mL/h, Kayexalate 15 g x 2 and her Lasix and spironolactone were put on hold. Labs done at ED revealed a Potassium of 6.4, BUN 111, creatinine 2.8, sodium 141, chloride 109, bicarb 16 and Hb of 8.7. [place] also documented a secondary diagnosis of COVID via PCR on 04/21. Chest x-ray performed at ER shwoed no acute process. Nephrology was consulted for further evaluation of TIFFANI. Past History Past Medical History: COPD, diabetes, heart failure, renal failure Family history: diabetes Medications and Allergies Allergies Allergy/AdvReac Type Severity Reaction Status Date / Time No Known Allergies Allergy Unverified 01/02/14 17:18 Home Medications Medication Instructions Recorded Confirmed Last Taken Type hydrALAZINE [Apresoline TAB] 50 mg PO TID 01/02/14 08/16/19 08/15/19 History Furosemide [Lasix TAB] 20 mg PO QDAY #14 tablet 08/13/19 08/16/19 08/15/19 Rx carvediloL [Coreg] 3.125 mg PO BID 08/13/19 08/16/19 08/15/19 History Aspirin EC 81 mg PO DAILY 08/16/19 08/16/19 08/15/19 History Clopidogrel [Plavix] 75 mg PO DAILY 08/16/19 08/16/19 08/15/19 History Aspirin [Aspirin BABY CHEW TAB] 81 mg PO QDAY #30 tab.chew 08/18/19 Unknown Rx Simvastatin 40 mg PO QHS #30 tablet 08/18/19 Unknown Rx Spironolactone [Aldactone] 25 mg PO QDAY #30 tablet 08/18/19 Unknown Rx carvediloL [Coreg] 6.25 mg PO BID #60 tablet 08/18/19 Unknown Rx Acetaminophen [Acetaminophen TAB] 650 mg PO Q4H PRN tablet 03/12/20 Unknown Rx Magnesium Hydroxide [Milk of 30 ml PO Q4H PRN oral.liqd 03/12/20 Unknown Rx Magnesia] Active Meds: Active Medications Acetaminophen (Acetaminophen 325 Mg Tab) 650 mg PO Q4H PRN PRN Reason: Pain MILD(1-3)/Fever >100.5/MERINO Albuterol (Albuterol 2.5 Mg/3 Ml Nebu) 2.5 mg IH Q4HRT PRN PRN Reason: Shortness Of Breath Albuterol/Ipratropium (Ipratropium/Albuterol Sulfate 3 Ml Ampul.Neb) 1 ampul IH Q6HRT [facility] Last Admin: 05/02/20 13:39 Dose: 1 ampul Documented by: Dextrose (Dextrose 50% In Water (25gm) 50 Ml Syringe) 50 ml IV Q30MIN PRN; Protocol PRN Reason: Hypoglycemia Famotidine (Famotidine 20 Mg/2 Ml Inj) 10 mg IV BID [facility] Last Admin: 05/02/20 10:16 Dose: 10 mg Documented by: Sodium Bicarbonate 150 meq/ (Sterile Water) 1,150 mls @ 75 mls/hr IV DIRECT KIMMY Last Admin: 05/01/20 23:48 Dose: 75 mls/hr Documented by: Sodium Chloride (Nacl 0.45% 1000 Ml) 1,000 mls @ 100 mls/hr IV DIRECT KIMMY Ceftriaxone Sodium (Rocephin/Ns 2 Gm/100 Ml) 2 gm in 100 mls @ 200 mls/hr IV Q2 4HR@2200 [facility]; Protocol Stop: 05/05/20 22:29 Last Infusion: 05/02/20 01:32 Dose: Infused Documented by: Azithromycin (Zithromax/Ns) 500 mg in 250 mls @ 250 mls/hr IV Q24HR@2200 [facility]; Protocol Stop: 05/03/20 22:59 Last Infusion: 05/02/20 01:32 Dose: Infused Documented by: Insulin Human Lispro (Insulin Lispro 100 Unit/Ml Vial 3 Ml) 0 unit SUB-Q ACHS [facility]; Protocol Last Admin: 05/02/20 11:56 Dose: Not Given Documented by: Ondansetron HCl (Ondansetron 4 Mg/2 Ml Inj) 4 mg IV Q8H PRN PRN Reason: Nausea And Vomiting Sodium Chloride (Sodium Chloride 0.9% 10 Ml Flush Syringe) 10 ml IV BID KIMMY Last Admin: 05/02/20 10:16 Dose: 10 ml Documented by: Sodium Chloride (Sodium Chloride 0.9% 10 Ml Flush Syringe) 10 ml IV PRN PRN PRN Reason: LINE FLUSH Review of Systems ROS unobtainable: due to mental status Exam - Vital Signs Vital signs: Vital Signs Temp Pulse Resp BP Pulse Ox 97.2 F L 61 16 89/51 95 05/01/20 20:10 05/01/20 20:10 05/01/20 20:10 05/01/20 20:10 05/01/20 20:10 Results - Lab Results 05/02/20 05:34 05/02/20 05:34 Most recent lab results Calcium 8.4 mg/dL (8.4-10.2) 05/02/20 05:34 Assessment and Plan 1. Acute kidney injury: Suspect vasomotor TIFFANI superimposed on CKD. Urine studies and Renal US ordered. Monitor renal function. Slight decrease in the creatinine level noted. Renal prognosis is guarded. Avoid nephrotoxic agents. Meds dosage based on GFR. 2. FEN: Hyperkalemia, improving, monitor. Aniongap metabolic acidosis, 2/2 TIFFANI / CKD, bicarb drip, monitor. Monitor lytes and volume status. 3. History of COVID-19: COVID test negative here. 4. Dementia: Monitor. 5. Macrocytic Anemia, POA: Monitor. 6. DM type 2. 7. HTN: Monitor BP. Subjective: Patient was seen and examined at the chairside. Examination: General appearance: well-developed, appears stated age, not in distress HEENT: ATNC, pupils equal Neck: trachea midline Respiratory: ctab Heart: regular, S1S2, no murmur Gastrointestinal: soft, normoactive bowel sounds, not tender Integumentary: LE stasis changes noted, warm and dry Neurologic: alert, able to move extremities, confused Ext: no edema
--- NOTE | 2020-05-02 19:26 | Progress Note ---
Assessment and Plan Assessment and Plan (1) Acute on chronic kidney failure Current Visit: Yes Status: Acute Plan to address problem: Admit the patient to the IMCU. Half-normal saline at the rate of 100 cc/h. Avoid nephrotoxic drug. We consulted nephrology for further evaluation and treatment. Recheck CBC BMP in the morning Creatinine improved from 4 to 2.6 it maybe baseline (2) Dehydration Current Visit: Yes Status: Acute Plan to address problem: Stop 1/2 NS Increased po water intake (3) History of COVID-19 Current Visit: Yes Status: Acute Plan to address problem: Oxygen per nasal cannula 3 L/min. DuoNeb nebulizer every 4 hours as needed. Rocephin 1 g IV daily and Zithromax 500 mg IV daily. We will do the blood culture and sputum culture. Recheck CBC BMP in the morning. Please consult ID and pulmonary if needed Covid positive on 04/21 and today ID Consult appreciated (4) Hyperkalemia Current Visit: Yes Status: Acute Plan to address problem: Improved from 6.1 to 5.1 (5) DVT prophylaxis On Heparin and GI prophylaxis Subjective Date of service: 05/02/20 Principal diagnosis: TIFFANI,ESRD,Covid positive Interval history: 79-year-old female with a past medical history of chronic renal insufficiency, type 2 diabetes, COPD, CHF, and dementia was [facility] with abnormal labs. Patient had lab results from today showing hyperkalemia worsening renal insufficiency. Patient had labs performed yesterday showing potassium 5.8, BUN 74, creatinine 4.4, sodium 168, chloride 134 and was subsequently treated with 2 L of normal saline at 100 mL/h, Kayexalate 15 g x 2 and her Lasix and spironolactone were put on hold. Labs were repeated today and revealed a potassium of 6.4, BUN 116, creatinine 3.0, sodium 141, chloride 112 despite treatment provided at [facility] therefore patient was sent to the ER for evaluation. Patient was also noted to have a hemoglobin of 7.2. [place] also documented a secondary diagnosis of COVID via PCR on 04/21. Chest x-ray performed April 29 did not show any acute cardiopulmonary disease. Objective - Constitutional Vitals: Vital Signs - 12hr 05/02/20 05/02/20 10:00 12:51 Pulse Rate [ 65 Bilateral] Respiratory 18 Rate [Bilateral ] O2 Sat by Pulse 98 Oximetry General appearance: Present: no acute distress, well-nourished - EENT Eyes: PERRL, EOM intact ENT: hearing intact, clear oral mucosa Ears: bilateral: normal - Neck Neck: supple, normal ROM - Respiratory Respiratory effort: normal Respiratory: bilateral: CTA - Breasts Breasts: normal - Cardiovascular Rhythm: regular Heart Sounds: Present: S1 & S2. Absent: gallop, rub Extremities: pulses intact, No edema, normal color, Full ROM - Gastrointestinal General gastrointestinal: Present: soft, non-tender, non-distended, normal bowel sounds - Genitourinary Female genitourinary: normal - Integumentary Integumentary: clear, warm, dry - Musculoskeletal Musculoskeletal: 1, strength equal bilaterally - Neurologic Neurologic: moves all extremities - Psychiatric Psychiatric: memory intact, appropriate mood/affect, intact judgment & insight - Labs CBC & Chem 7: 05/02/20 05:34 05/03/20 04:37 Labs: Abnormal lab results 05/01/20 05/01/20 05/02/20 Range/Units 20:27 20:27 05:34 RBC 2.70 L (3.65-5.03) M/mm3 Hgb 8.7 L (10.1-14.3) gm/dl Hct 27.1 L (30.3-42.9) % MCV 100 H (79-97) fl Lymph % (Auto) (13.4-35.0) % [place] % (Auto) (0.0-7.3) % Lymph # (Auto) (1.2-5.4) K/mm3 Seg Neutrophils % (40.0-70.0) % Lymphocytes % (Manual) 3.0 L (13.4-35.0) % Lymphocytes # (Manual) 0.1 L (1.2-5.4) K/mm3 Potassium 6.1 H* 5.1 H (3.6-5.0) mmol/L Chloride 109.2 H 110.9 H (98-107) mmol/L Carbon Dioxide 16 L 19 L (22-30) mmol/L BUN 111 H 108 H (7-17) mg/dL Creatinine 2.8 H 2.6 H (0.6-1.2) mg/dL Glucose 160 H 131 H (65-100) mg/dL POC Glucose (70-105) mg/dL ALT < 5 L (7-56) units/L Total Protein 5.7 L (6.3-8.2) g/dL Albumin 3.3 L (3.9-5) g/dL Coronavirus (PCR) (Negative) 05/02/20 05/02/20 05/02/20 Range/Units 05:34 16:36 Unknown RBC 2.55 L (3.65-5.03) M/mm3 Hgb 8.1 L (10.1-14.3) gm/dl Hct 24.9 L (30.3-42.9) % MCV 98 H (79-97) fl Lymph % (Auto) 4.5 L (13.4-35.0) % [place] % (Auto) 8.3 H (0.0-7.3) % Lymph # (Auto) 0.3 L (1.2-5.4) K/mm3 Seg Neutrophils % 87.2 H (40.0-70.0) % Lymphocytes % (Manual) (13.4-35.0) % Lymphocytes # (Manual) (1.2-5.4) K/mm3 Potassium (3.6-5.0) mmol/L Chloride (98-107) mmol/L Carbon Dioxide (22-30) mmol/L BUN (7-17) mg/dL Creatinine (0.6-1.2) mg/dL Glucose (65-100) mg/dL POC Glucose 115 H (70-105) mg/dL ALT (7-56) units/L Total Protein (6.3-8.2) g/dL Albumin (3.9-5) g/dL Coronavirus (PCR) Positive A (Negative)
[2020-05-02] MEDS: dexAMETHasone 4 MG/ML VIAL IV SCH (23:32)
[2020-05-02] MEDS: AZITHROMYCIN/NS 500 MG/250 ML 500 MG/250 ML BAG IV SCH (23:33)
[2020-05-02] MEDS: cefTRIAXone/NS 2 GM/100 ML 2 GM/100 ML BAG IV SCH (23:33)
[2020-05-03] MEDS: IPRATROPIUM/ALBUTEROL SULFATE 3 ML AMPUL.NEB IH SCH ×4 (03:05→20:47)
[2020-05-03 06:59] LABS: Calcium 8.5 mg/dL (8.4-10.2)
[2020-05-03] MEDS: INSULIN LISPRO 100 UNIT/ML VIAL 3 mL SUB-Q SCH ×4 (07:30→23:45)
[2020-05-03] MEDS: FAMOTIDINE 20 MG/2 ML INJ IV SCH (09:32)
[2020-05-03] MEDS: HEPARIN 5,000 UNIT/1 ML VIAL SUB-Q SCH (10:45)
--- NOTE | 2020-05-03 10:47 | Progress Note ---
Assessment and Plan - Patient Problems (1) Metabolic encephalopathy Current Visit: Yes Status: Acute Plan to address problem: Supportive care, patient is at baseline level of cognition and function, supportive care. Fall precautions, aspiration precautions. (2) Hyperosmolality and hypernatremia Current Visit: Yes Status: Acute Plan to address problem: Sodium restriction, IV fluid resuscitation therapy, supportive care, repeat BMP in a.m., (3) Debility Current Visit: Yes Status: Acute Plan to address problem: Supportive care, fall precautions, (4) Coronavirus infection Current Visit: Yes Status: Acute Plan to address problem: Supportive care. Patient has history of coronavirus infection status post full course therapy. Patient currently asymptomatic. (5) Acute on chronic kidney failure Current Visit: Yes Status: Acute Plan to address problem: Nephrology team consulted, strict I's/O, monitor urine output every shift, daily weight, renal ultrasound ordered and is pending. (6) Acidosis Current Visit: Yes Status: Acute Plan to address problem: Bicarbonate drip, supportive care, (7) Advance care planning Current Visit: Yes Status: Acute Plan to address problem: Disease education conducted, patient is full code, care plan discussed, +30 minutes. (8) DVT prophylaxis Current Visit: Yes Status: Acute Plan to address problem: SCD to bilateral lower extremities while in bed, patient is ambulatory History Interval history: 79 YO Female HD # 3 with TIFFANI, Coronavirus Infection, Metabolic Encephalopathy, Hypernatremia. Pt remains confused, but is at baseline level of cognition and function. No reported nursing events. Hospitalist Physical - Constitutional Vitals: Temp Pulse Resp BP Pulse Ox 97.7 F 74 14 148/56 96 05/01/20 21:20 05/02/20 23:38 05/02/20 23:38 05/03/20 01:01 05/02/20 23:38 General appearance: Present: no acute distress, well-nourished - EENT Eyes: Present: PERRL ENT: hearing decreased - Neck Neck: Present: supple - Respiratory Respiratory effort: normal Respiratory: bilateral: CTA - Cardiovascular Rhythm: regular Heart Sounds: Present: S1 & S2 - Extremities Extremities: no ischemia Peripheral Pulses: within normal limits - Abdominal General gastrointestinal: soft, non-tender, non-distended - Integumentary Integumentary: Present: clear, dry - Psychiatric Psychiatric: no intact judgment & insight, no memory intact - Neurologic Neurologic: CNII-XII intact, no focal deficits, moves all extremities, no gait normal Results - Labs CBC & Chem 7: 05/02/20 05:34 05/03/20 04:37 Labs: Laboratory Last Values WBC 6.0 K/mm3 (4.5-11.0) 05/02/20 05:34 RBC 2.55 M/mm3 (3.65-5.03) L 05/02/20 05:34 Hgb 8.1 gm/dl (10.1-14.3) L 05/02/20 05:34 Hct 24.9 % (30.3-42.9) L 05/02/20 05:34 MCV 98 fl (79-97) H 05/02/20 05:34 MCH 32 pg (28-32) 05/02/20 05:34 MCHC 33 % (30-34) 05/02/20 05:34 RDW 13.9 % (13.2-15.2) 05/02/20 05:34 Plt Count 268 K/mm3 (140-440) 05/02/20 05:34 Lymph % (Auto) 4.5 % (13.4-35.0) L 05/02/20 05:34 [place] % (Auto) 8.3 % (0.0-7.3) H 05/02/20 05:34 Eos % (Auto) 0.0 % (0.0-4.3) 05/02/20 05:34 Baso % (Auto) 0.0 % (0.0-1.8) 05/02/20 05:34 Lymph # (Auto) 0.3 K/mm3 (1.2-5.4) L 05/02/20 05:34 [place] # (Auto) 0.5 K/mm3 (0.0-0.8) 05/02/20 05:34 Eos # (Auto) 0.0 K/mm3 (0.0-0.4) 05/02/20 05:34 Baso # (Auto) 0.0 K/mm3 (0.0-0.1) 05/02/20 05:34 Add Manual Diff Complete 05/01/20 20:27 Total Counted 100 05/01/20 20:27 Seg Neutrophils % 87.2 % (40.0-70.0) H 05/02/20 05:34 Lymphocytes % (Manual) 3.0 % (13.4-35.0) L 05/01/20 20:27 Monocytes % (Manual) 1.0 % (0.0-7.3) 05/01/20 20:27 Nucleated RBC % Not Reportable 05/01/20 20:27 Seg Neutrophils # 5.2 K/mm3 (1.8-7.7) 05/02/20 05:34 Seg Neutrophils # Man 4.6 K/mm3 (1.8-7.7) 05/01/20 20:27 Band Neutrophils # 0.0 K/mm3 05/01/20 20:27 Lymphocytes # (Manual) 0.1 K/mm3 (1.2-5.4) L 05/01/20 20:27 Abs React Lymphs (Man) 0.0 K/mm3 05/01/20 20:27 Monocytes # (Manual) 0.0 K/mm3 (0.0-0.8) 05/01/20 20:27 Eosinophils # (Manual) 0.0 K/mm3 (0.0-0.4) 05/01/20 20:27 Basophils # (Manual) 0.0 K/mm3 (0.0-0.1) 05/01/20 20:27 Metamyelocytes # 0.0 K/mm3 05/01/20 20:27 Myelocytes # 0.0 K/mm3 05/01/20 20:27 Promyelocytes # 0.0 K/mm3 05/01/20 20:27 Blast Cells # 0.0 K/mm3 05/01/20 20:27 WBC Morphology Not Reportable 05/01/20 20:27 Hypersegmented Neuts Not Reportable 05/01/20 20:27 Hyposegmented Neuts Not Reportable 05/01/20 20:27 Hypogranular Neuts Not Reportable 05/01/20 20:27 Smudge Cells Not Reportable 05/01/20 20:27 Toxic Granulation Not Reportable 05/01/20 20:27 Toxic Vacuolation Not Reportable 05/01/20 20:27 Dohle Bodies Not Reportable 05/01/20 20:27 Pelger-Huet Anomaly Not Reportable 05/01/20 20:27 T[place] Rods Not Reportable 05/01/20 20:27 Platelet Estimate Consistent w auto 05/01/20 20:27 Clumped Platelets Not Reportable 05/01/20 20:27 Plt Clumps, EDTA Not Reportable 05/01/20 20:27 Large Platelets Not Reportable 05/01/20 20:27 Giant Platelets Not Reportable 05/01/20 20:27 Platelet Satelliting Not Reportable 05/01/20 20:27 Plt Morphology Comment Not Reportable 05/01/20 20:27 RBC Morphology Not Reportable 05/01/20 20:27 Dimorphic RBCs Not Reportable 05/01/20 20:27 Polychromasia Not Reportable 05/01/20 20:27 Hypochromasia Not Reportable 05/01/20 20:27 Poikilocytosis Not Reportable 05/01/20 20:27 Anisocytosis Not Reportable 05/01/20 20:27 Microcytosis Not Reportable 05/01/20 20:27 Macrocytosis Not Reportable 05/01/20 20:27 Spherocytes Not Reportable 05/01/20 20:27 Pappenheimer Bodies Not Reportable 05/01/20 20:27 Sickle Cells Not Reportable 05/01/20 20:27 Target Cells Not Reportable 05/01/20 20:27 Tear Drop Cells Few 05/01/20 20:27 Ovalocytes Rare 05/01/20 20:27 Helmet Cells Rare 05/01/20 20:27 [place] Bodies Not Reportable 05/01/20 20:27 [place] Rings Not Reportable 05/01/20 20:27 Martin Cells Rare 05/01/20 20:27 Bite Cells Rare 05/01/20 20:27 Crenated Cell Not Reportable 05/01/20 20:27 Elliptocytes Not Reportable 05/01/20 20:27 Acanthocytes (Spur) Rare 05/01/20 20:27 Rouleaux Not Reportable 05/01/20 20:27 Hemoglobin C Crystals Not Reportable 05/01/20 20:27 Schistocytes Not Reportable 05/01/20 20:27 Malaria parasites Not Reportable 05/01/20 20:27 Hesham Bodies Not Reportable 05/01/20 20:27 Hem Pathologist Commnt No 05/01/20 20:27 PT 12.4 Sec. (12.2-14.9) 05/01/20 20:27 INR 0.94 (0.87-1.13) 05/01/20 20:27 APTT 27.0 Sec. (24.2-36.6) 05/01/20 20:27 Sodium 150 mmol/L (137-145) H 05/03/20 04:37 Potassium 5.1 mmol/L (3.6-5.0) H 05/03/20 04:37 Chloride 114.1 mmol/L (98-107) H 05/03/20 04:37 Carbon Dioxide 19 mmol/L (22-30) L 05/03/20 04:37 Anion Gap 22 mmol/L 05/03/20 04:37 BUN 103 mg/dL (7-17) H 05/03/20 04:37 Creatinine 2.6 mg/dL (0.6-1.2) H 05/03/20 04:37 Estimated GFR 21 ml/min 05/03/20 04:37 BUN/Creatinine Ratio 40 % 05/03/20 04:37 Glucose 131 mg/dL (65-100) H 05/03/20 04:37 POC Glucose 128 mg/dL (70-105) H 05/03/20 07:48 Calcium 8.5 mg/dL (8.4-10.2) 05/03/20 04:37 Total Bilirubin 0.20 mg/dL (0.1-1.2) 05/02/20 05:34 AST 10 units/L (5-40) 05/02/20 05:34 ALT < 5 units/L (7-56) L 05/02/20 05:34 Alkaline Phosphatase 54 units/L (35-129) 05/02/20 05:34 Total Protein 5.7 g/dL (6.3-8.2) L 05/02/20 05:34 Albumin 3.3 g/dL (3.9-5) L 05/02/20 05:34 Albumin/Globulin Ratio 1.4 % 05/02/20 05:34 Coronavirus (PCR) Positive (Negative) A 05/02/20 Unknown Blood Type O POSITIVE 05/01/20 20:27 Antibody Screen Negative 05/01/20 20:27 Microbiology: Microbiology 05/01/20 23:57 Peripheral/Venous Blood Culture - Preliminary NO GROWTH AFTER 24 HOURS 05/02/20 00:03 Peripheral/Venous Blood Culture - Preliminary NO GROWTH AFTER 24 HOURS Pfeiffer/IV: Voiding Method Incontinent Active Medications - Current Medications Current Medications: Generic Name Dose Route Start Last Admin Trade Name Freq PRN Reason Stop Dose Admin Acetaminophen 650 mg 05/01/20 22:21 Acetaminophen 325 Mg Tab PO Q4H PRN Pain MILD(1-3)/Fever >100.5/MERINO Albuterol 2.5 mg 05/01/20 22:39 Albuterol 2.5 Mg/3 Ml Nebu IH Q4HRT PRN Shortness Of Breath Albuterol/Ipratropium 1 ampul 05/01/20 22:30 05/03/20 07:38 Ipratropium/Albuterol Sulfate 3 Ml Ampul.Neb IH 1 ampul Q6HRT KIMMY Administration Dexamethasone 8 mg 05/02/20 20:00 05/02/20 23:32 Dexamethasone 4 Mg/Ml Vial IV 8 mg Q24H KIMMY Administration Dextrose 50 ml 05/01/20 22:21 Dextrose 50% In Water (25gm) 50 Ml Syringe IV Q30MIN PRN Hypoglycemia Protocol Famotidine 10 mg 05/01/20 23:00 05/03/20 09:32 Famotidine 20 Mg/2 Ml Inj IV 10 mg BID KIMMY Administration Heparin Sodium (Porcine) 5,000 unit 05/03/20 10:45 Heparin 5,000 Unit/1 Ml Vial SUB-Q Q12HR [facility] Ceftriaxone Sodium 2 gm in 100 mls @ 200 mls/hr 05/01/20 23:00 05/02/20 23:33 Rocephin/Ns 2 Gm/100 Ml IV 05/05/20 22:29 200 mls/hr Q24HR@2200 KIMMY Administration Protocol Azithromycin 500 mg in 250 mls @ 250 mls/hr 05/01/20 23:00 05/02/20 23:33 Zithromax/Ns IV 05/03/20 22:59 250 mls/hr Q24HR@2200 [facility] Administration Protocol Sodium Bicarbonate 50 meq/ 1,050 mls @ 75 mls/hr 05/03/20 11:00 Dextrose IV DIRECT KIMMY Insulin Human Lispro 0 unit 05/02/20 07:30 05/03/20 07:30 Insulin Lispro 100 Unit/Ml Vial 3 Ml SUB-Q Not Given ACHS KIMMY Protocol Ondansetron HCl 4 mg 05/01/20 22:21 Ondansetron 4 Mg/2 Ml Inj IV Q8H PRN Nausea And Vomiting Sodium Chloride 10 ml 05/01/20 23:00 05/03/20 09:32 Sodium Chloride 0.9% 10 Ml Flush Syringe IV 10 ml BID KIMMY Administration Sodium Chloride 10 ml 05/01/20 22:21 Sodium Chloride 0.9% 10 Ml Flush Syringe IV PRN PRN LINE FLUSH Nutrition/Malnutrition Assess - Dietary Evaluation Nutrition/Malnutrition Findings: Nutrition Notes Start: 05/02/20 14:56 Freq: Status: Active Protocol: Document 05/03/20 09:54 AGGIE (Rec: 05/03/20 10:05 AGGIE [id number]) Nutrition Notes Need for Assessment generated from: chief technologist Initial or Follow up Assessment Current Diagnosis CKD(stage I-IV),COPD,Diabetes, Heart Failure Other Pertinent Diagnosis Dementia, acute on chronic kidney failure Current Diet Renal Labs/Tests Na 150 K 5.1 BUN 103 Cr 2.6 Pertinent Medications 1/2 NS at 100 ml/hr Height 5 ft 5 in Weight 68.967 kg Usual Body Weight 61.2 kg [place] Body Weight (kg) 56.81 BMI 25.2 Weight change and time frame 3.6% wt loss in 2 mo Weight Status Underweight Subjective/Other Information RN screen for MST, skin risk and chewing difficulty. Eusebio score 17. Per chart, pt confused. Pt did not answer phone. RN unsure of intakes or chewing difficulties. Per chart, pt has hx of poor intakes. Burn Absent Trauma Absent Minimum of two criteria No physical signs of malnutrition #1 Nutrition Diagnosis Predicted suboptimal energy intake Etiology Dementia, chronic disease, advanced age As Evidenced by Signs and Symptoms pt with hx of poor oral intakes Is patient on ventilator? No Is Patient Ambulatory and/or Out of Bed No REE-([facility]-confined to bed) 1398.877 Calculation Used for Recommendations [facility] Additional Notes Protein: greater than 71g (>1. 2g/kg) Fluid: 1 ml/kcal or per Nutrition Intervention Change Diet Order: Renal Add Supplement/Snack (indicate name/kcal Nepro daily /protein ) Provides kCal: 425 Provides Protein (gm) 19 Goal #1 Meet at least 75% of protein and energy needs via PO and ONS intakes Goal #2 Weight gain/maintanance Anticipated Discharge Needs: Renal, consistent CHO Follow-Up By: 05/06/20 Additional Comments FU for intakes, need for ONS, chewing difficulty
[2020-05-03] MEDS ORDERED: SODIUM BICARBONATE 50 MEQ in DEXTROSE 5% IN WATER 1,000 ML IV SCH (11:00)
--- NOTE | 2020-05-03 13:28 | Progress Note ---
Assessment and Plan 1. Acute kidney injury: Suspect vasomotor TIFFANI superimposed on CKD. Urine studies and Renal US ordered. Monitor renal function. Creatinine leveled off. Renal prognosis is guarded. Avoid nephrotoxic agents. Meds dosage based on GFR. 2. FEN: Hyperkalemia, improving, monitor. Aniongap metabolic acidosis, 2/2 TIFFANI / CKD, bicarb drip, monitor. Hypernatremia, hypotonic IV fluids. Monitor lytes and volume status. 3. COVID-19 infection: Pt tested positive for COVID. Decadron. 4. Dementia: Monitor. 5. Macrocytic Anemia, POA: Monitor. 6. DM type 2. 7. HTN: Monitor BP. Subjective: Patient was seen and examined at the bedside. Examination: General appearance: well-developed, appears stated age, not in distress HEENT: ATNC, pupils equal Neck: trachea midline Respiratory: ctab Heart: regular, S1S2, no murmur Gastrointestinal: soft, normoactive bowel sounds, not tender Integumentary: LE stasis changes noted, warm and dry Neurologic: alert, able to move extremities, confused Ext: no edema Subjective Date of service: 05/03/20 Principal diagnosis: TIFFANI,ESRD,Covid positive Objective - Vital Signs Vital signs: Vital Signs - 12hr 05/03/20 05/03/20 05/03/20 05:43 11:18 11:29 Temperature 98.6 F 98.0 F Pulse Rate 79 98 H Respiratory 18 18 Rate Blood Pressure 155/56 131/56 O2 Sat by Pulse 97 96 98 Oximetry - Lab 05/02/20 05:34 05/03/20 04:37 Most recent lab results Calcium 8.5 mg/dL (8.4-10.2) 05/03/20 04:37 Medications & Allergies - Medications Allergies/Adverse Reactions: Allergies No Known Allergies Allergy (Unverified 01/02/14 17:18) Home Medications: Home Medications Medication Instructions Recorded Confirmed Last Taken Type hydrALAZINE [Apresoline TAB] 50 mg PO TID 01/02/14 05/03/20 08/15/19 History Furosemide [Lasix TAB] 20 mg PO QDAY #14 tablet 08/13/19 05/03/20 08/15/19 Rx carvediloL [Coreg] 3.125 mg PO BID 08/13/19 05/03/20 08/15/19 History Aspirin EC 81 mg PO DAILY 08/16/19 05/03/20 08/15/19 History Clopidogrel [Plavix] 75 mg PO DAILY 08/16/19 05/03/20 08/15/19 History Aspirin [Aspirin BABY CHEW TAB] 81 mg PO QDAY #30 tab.chew 08/18/19 05/03/20 Unknown Rx Simvastatin 40 mg PO QHS #30 tablet 08/18/19 05/03/20 Unknown Rx Spironolactone [Aldactone] 25 mg PO QDAY #30 tablet 08/18/19 05/03/20 Unknown Rx carvediloL [Coreg] 6.25 mg PO BID #60 tablet 08/18/19 05/03/20 Unknown Rx Acetaminophen [Acetaminophen TAB] 650 mg PO Q4H PRN tablet 03/12/20 05/03/20 Unknown Rx Magnesium Hydroxide [Milk of 30 ml PO Q4H PRN oral.liqd 03/12/20 05/03/20 Unknown Rx Magnesia] Active Medications: Generic Name Dose Route Start Last Admin Trade Name Freq PRN Reason Stop Dose Admin Acetaminophen 650 mg 05/01/20 22:21 Acetaminophen 325 Mg Tab PO Q4H PRN Pain MILD(1-3)/Fever >100.5/MERINO Albuterol 2.5 mg 05/01/20 22:39 Albuterol 2.5 Mg/3 Ml Nebu IH Q4HRT PRN Shortness Of Breath Albuterol/Ipratropium 1 ampul 05/01/20 22:30 05/03/20 07:38 Ipratropium/Albuterol Sulfate 3 Ml Ampul.Neb IH 1 ampul Q6HRT KIMMY Administration Dexamethasone 8 mg 05/02/20 20:00 05/02/20 23:32 Dexamethasone 4 Mg/Ml Vial IV 8 mg Q24H KIMMY Administration Dextrose 50 ml 05/01/20 22:21 Dextrose 50% In Water (25gm) 50 Ml Syringe IV Q30MIN PRN Hypoglycemia Protocol Famotidine 10 mg 05/01/20 23:00 05/03/20 09:32 Famotidine 20 Mg/2 Ml Inj IV 10 mg BID KIMMY Administration Heparin Sodium (Porcine) 5,000 unit 05/03/20 10:45 Heparin 5,000 Unit/1 Ml Vial SUB-Q Q12HR KIMMY Ceftriaxone Sodium 2 gm in 100 mls @ 200 mls/hr 05/01/20 23:00 05/02/20 23:33 Rocephin/Ns 2 Gm/100 Ml IV 05/05/20 22:29 200 mls/hr Q24HR@2200 [facility] Administration Protocol Azithromycin 500 mg in 250 mls @ 250 mls/hr 05/01/20 23:00 05/02/20 23:33 Zithromax/Ns IV 05/03/20 22:59 250 mls/hr Q24HR@2200 [facility] Administration Protocol Sodium Bicarbonate 50 meq/ 1,050 mls @ 75 mls/hr 05/03/20 11:00 Dextrose IV DIRECT [facility] Insulin Human Lispro 0 unit 05/02/20 07:30 05/03/20 11:30 Insulin Lispro 100 Unit/Ml Vial 3 Ml SUB-Q Not Given ACHS [facility] Protocol Ondansetron HCl 4 mg 05/01/20 22:21 Ondansetron 4 Mg/2 Ml Inj IV Q8H PRN Nausea And Vomiting Sodium Chloride 10 ml 05/01/20 23:00 05/03/20 09:32 Sodium Chloride 0.9% 10 Ml Flush Syringe IV 10 ml BID KIMMY Administration Sodium Chloride 10 ml 05/01/20 22:21 Sodium Chloride 0.9% 10 Ml Flush Syringe IV PRN PRN LINE FLUSH
[2020-05-04] MEDS: dexAMETHasone 4 MG/ML VIAL IV SCH ×2 (04:43→22:50)
[2020-05-04] MEDS: HEPARIN 5,000 UNIT/1 ML VIAL SUB-Q SCH ×4 (04:44→23:08)
[2020-05-04] MEDS: FAMOTIDINE 20 MG/2 ML INJ IV SCH ×4 (04:46→23:08)
[2020-05-04] MEDS: cefTRIAXone/NS 2 GM/100 ML 2 GM/100 ML BAG IV SCH ×2 (04:47→22:50)
[2020-05-04] MEDS: AZITHROMYCIN/NS 500 MG/250 ML 500 MG/250 ML BAG IV SCH (04:48)
[2020-05-04 07:21] LABS: Calcium 8.8 mg/dL (8.4-10.2)
[2020-05-04] MEDS: INSULIN LISPRO 100 UNIT/ML VIAL 3 mL SUB-Q SCH ×4 (07:30→22:51)
[2020-05-04] MEDS: IPRATROPIUM/ALBUTEROL SULFATE 3 ML AMPUL.NEB IH SCH (08:07)
--- NOTE | 2020-05-04 11:29 | Progress Note ---
Assessment and Plan - Patient Problems (1) Metabolic encephalopathy Current Visit: Yes Status: Acute Plan to address problem: Supportive care, patient is at baseline level of cognition and function, supportive care. Fall precautions, aspiration precautions. (2) Hyperosmolality and hypernatremia Current Visit: Yes Status: Acute Plan to address problem: Sodium restriction, IV fluid resuscitation therapy, supportive care, repeat BMP in a.m., (3) Debility Current Visit: Yes Status: Acute Plan to address problem: Supportive care, fall precautions, (4) Coronavirus infection Current Visit: Yes Status: Acute Plan to address problem: Supportive care. Patient has history of coronavirus infection status post full course therapy. Patient currently asymptomatic. (5) Acute on chronic kidney failure Current Visit: Yes Status: Acute Plan to address problem: Nephrology team consulted, strict I's/O, monitor urine output every shift, daily weight, renal ultrasound ordered and is pending. (6) Acidosis Current Visit: Yes Status: Acute Plan to address problem: Bicarbonate drip, supportive care, (7) Advance care planning Current Visit: Yes Status: Acute Plan to address problem: Disease education conducted, patient is full code, care plan discussed, +30 minutes. (8) DVT prophylaxis Current Visit: Yes Status: Acute Plan to address problem: SCD to bilateral lower extremities while in bed, patient is ambulatory History Interval history: 79 YO Female HD # 4 with TIFFANI, Asymptomatic Coronavirus Infection at time of admission, Metabolic Encephalopathy, Hypernatremia. Pt remains confused, but is at baseline level of cognition and function. No reported nursing events. Hospitalist Physical - Constitutional Vitals: Temp Pulse Resp BP Pulse Ox 98.8 F 76 16 150/57 98 05/04/20 04:15 05/04/20 04:15 05/04/20 04:15 05/04/20 04:15 05/04/20 10:00 General appearance: Present: no acute distress, well-nourished - EENT Eyes: Present: PERRL ENT: hearing decreased - Neck Neck: Present: supple - Respiratory Respiratory: bilateral: CTA - Cardiovascular Rhythm: regular Heart Sounds: Present: S1 & S2 - Extremities Extremities: no ischemia Peripheral Pulses: within normal limits - Abdominal General gastrointestinal: soft, non-tender, non-distended - Integumentary Integumentary: Present: clear, dry - Psychiatric Psychiatric: no appropriate mood/affect, no intact judgment & insight, no memory intact - Neurologic Neurologic: CNII-XII intact, moves all extremities, no gait normal Results - Labs CBC & Chem 7: 05/02/20 05:34 05/04/20 04:46 Labs: Laboratory Last Values WBC 6.0 K/mm3 (4.5-11.0) 05/02/20 05:34 RBC 2.55 M/mm3 (3.65-5.03) L 05/02/20 05:34 Hgb 8.1 gm/dl (10.1-14.3) L 05/02/20 05:34 Hct 24.9 % (30.3-42.9) L 05/02/20 05:34 MCV 98 fl (79-97) H 05/02/20 05:34 MCH 32 pg (28-32) 05/02/20 05:34 MCHC 33 % (30-34) 05/02/20 05:34 RDW 13.9 % (13.2-15.2) 05/02/20 05:34 Plt Count 268 K/mm3 (140-440) 05/02/20 05:34 Lymph % (Auto) 4.5 % (13.4-35.0) L 05/02/20 05:34 [place] % (Auto) 8.3 % (0.0-7.3) H 05/02/20 05:34 Eos % (Auto) 0.0 % (0.0-4.3) 05/02/20 05:34 Baso % (Auto) 0.0 % (0.0-1.8) 05/02/20 05:34 Lymph # (Auto) 0.3 K/mm3 (1.2-5.4) L 05/02/20 05:34 [place] # (Auto) 0.5 K/mm3 (0.0-0.8) 05/02/20 05:34 Eos # (Auto) 0.0 K/mm3 (0.0-0.4) 05/02/20 05:34 Baso # (Auto) 0.0 K/mm3 (0.0-0.1) 05/02/20 05:34 Add Manual Diff Complete 05/01/20 20:27 Total Counted 100 05/01/20 20:27 Seg Neutrophils % 87.2 % (40.0-70.0) H 05/02/20 05:34 Lymphocytes % (Manual) 3.0 % (13.4-35.0) L 05/01/20 20:27 Monocytes % (Manual) 1.0 % (0.0-7.3) 05/01/20 20:27 Nucleated RBC % Not Reportable 05/01/20 20:27 Seg Neutrophils # 5.2 K/mm3 (1.8-7.7) 05/02/20 05:34 Seg Neutrophils # Man 4.6 K/mm3 (1.8-7.7) 05/01/20 20:27 Band Neutrophils # 0.0 K/mm3 05/01/20 20:27 Lymphocytes # (Manual) 0.1 K/mm3 (1.2-5.4) L 05/01/20 20:27 Abs React Lymphs (Man) 0.0 K/mm3 05/01/20 20:27 Monocytes # (Manual) 0.0 K/mm3 (0.0-0.8) 05/01/20 20:27 Eosinophils # (Manual) 0.0 K/mm3 (0.0-0.4) 05/01/20 20:27 Basophils # (Manual) 0.0 K/mm3 (0.0-0.1) 05/01/20 20:27 Metamyelocytes # 0.0 K/mm3 05/01/20 20:27 Myelocytes # 0.0 K/mm3 05/01/20 20:27 Promyelocytes # 0.0 K/mm3 05/01/20 20:27 Blast Cells # 0.0 K/mm3 05/01/20 20:27 WBC Morphology Not Reportable 05/01/20 20:27 Hypersegmented Neuts Not Reportable 05/01/20 20:27 Hyposegmented Neuts Not Reportable 05/01/20 20:27 Hypogranular Neuts Not Reportable 05/01/20 20:27 Smudge Cells Not Reportable 05/01/20 20:27 Toxic Granulation Not Reportable 05/01/20 20:27 Toxic Vacuolation Not Reportable 05/01/20 20:27 Dohle Bodies Not Reportable 05/01/20 20:27 Pelger-Huet Anomaly Not Reportable 05/01/20 20:27 [place] Rods Not Reportable 05/01/20 20:27 Platelet Estimate Consistent w auto 05/01/20 20:27 Clumped Platelets Not Reportable 05/01/20 20:27 Plt Clumps, EDTA Not Reportable 05/01/20 20:27 Large Platelets Not Reportable 05/01/20 20:27 Giant Platelets Not Reportable 05/01/20 20:27 Platelet Satelliting Not Reportable 05/01/20 20:27 Plt Morphology Comment Not Reportable 05/01/20 20:27 RBC Morphology Not Reportable 05/01/20 20:27 Dimorphic RBCs Not Reportable 05/01/20 20:27 Polychromasia Not Reportable 05/01/20 20:27 Hypochromasia Not Reportable 05/01/20 20:27 Poikilocytosis Not Reportable 05/01/20 20:27 Anisocytosis Not Reportable 05/01/20 20:27 Microcytosis Not Reportable 05/01/20 20:27 Macrocytosis Not Reportable 05/01/20 20:27 Spherocytes Not Reportable 05/01/20 20:27 Pappenheimer Bodies Not Reportable 05/01/20 20:27 Sickle Cells Not Reportable 05/01/20 20:27 Target Cells Not Reportable 05/01/20 20:27 Tear Drop Cells Few 05/01/20 20:27 Ovalocytes Rare 05/01/20 20:27 Helmet Cells Rare 05/01/20 20:27 [place] Bodies Not Reportable 05/01/20 20:27 Ignacio Rings Not Reportable 05/01/20 20:27 [place] Cells Rare 05/01/20 20:27 Bite Cells Rare 05/01/20 20:27 Crenated Cell Not Reportable 05/01/20 20:27 Elliptocytes Not Reportable 05/01/20 20:27 Acanthocytes (Spur) Rare 05/01/20 20:27 Rouleaux Not Reportable 05/01/20 20:27 Hemoglobin C Crystals Not Reportable 05/01/20 20:27 Schistocytes Not Reportable 05/01/20 20:27 Malaria parasites Not Reportable 05/01/20 20:27 [place] Bodies Not Reportable 05/01/20 20:27 Hem Pathologist Commnt No 05/01/20 20:27 PT 12.4 Sec. (12.2-14.9) 05/01/20 20:27 INR 0.94 (0.87-1.13) 05/01/20 20:27 APTT 27.0 Sec. (24.2-36.6) 05/01/20 20:27 Sodium 149 mmol/L (137-145) H 05/04/20 04:46 Potassium 4.4 mmol/L (3.6-5.0) 05/04/20 04:46 Chloride 116.2 mmol/L (98-107) H 05/04/20 04:46 Carbon Dioxide 20 mmol/L (22-30) L 05/04/20 04:46 Anion Gap 17 mmol/L 05/04/20 04:46 BUN 95 mg/dL (7-17) H 05/04/20 04:46 Creatinine 2.4 mg/dL (0.6-1.2) H 05/04/20 04:46 Estimated GFR 24 ml/min 05/04/20 04:46 BUN/Creatinine Ratio 40 % 05/04/20 04:46 Glucose 132 mg/dL (65-100) H 05/04/20 04:46 POC Glucose 118 mg/dL (70-105) H 05/04/20 11:07 Calcium 8.8 mg/dL (8.4-10.2) 05/04/20 04:46 Total Bilirubin 0.20 mg/dL (0.1-1.2) 05/02/20 05:34 AST 10 units/L (5-40) 05/02/20 05:34 ALT < 5 units/L (7-56) L 05/02/20 05:34 Alkaline Phosphatase 54 units/L (35-129) 05/02/20 05:34 Total Protein 5.7 g/dL (6.3-8.2) L 05/02/20 05:34 Albumin 3.3 g/dL (3.9-5) L 05/02/20 05:34 Albumin/Globulin Ratio 1.4 % 05/02/20 05:34 Nasal Screen MRSA (PCR) Negative (Negative) 05/03/20 11:13 Coronavirus (PCR) Positive (Negative) A 05/02/20 Unknown Blood Type O POSITIVE 05/01/20 20:27 Antibody Screen Negative 05/01/20 20:27 Microbiology: Microbiology 05/01/20 23:57 Peripheral/Venous Blood Culture - Preliminary NO GROWTH AFTER 48 HOURS 05/02/20 00:03 Peripheral/Venous Blood Culture - Preliminary NO GROWTH AFTER 48 HOURS Pfeiffer/IV: Voiding Method Incontinent Active Medications - Current Medications Current Medications: Generic Name Dose Route Start Last Admin Trade Name Freq PRN Reason Stop Dose Admin Acetaminophen 650 mg 05/01/20 22:21 Acetaminophen 325 Mg Tab PO Q4H PRN Pain MILD(1-3)/Fever >100.5/MERINO Albuterol 2.5 mg 05/01/20 22:39 Albuterol 2.5 Mg/3 Ml Nebu IH Q4HRT PRN Shortness Of Breath Albuterol/Ipratropium 1 ampul 05/03/20 20:00 05/04/20 08:07 Ipratropium/Albuterol Sulfate 3 Ml Ampul.Neb IH Not Given BIDRT [facility] Dexamethasone 8 mg 05/02/20 20:00 05/04/20 04:43 Dexamethasone 4 Mg/Ml Vial IV Not Given Q24H [facility] Dextrose 50 ml 05/01/20 22:21 Dextrose 50% In Water (25gm) 50 Ml Syringe IV Q30MIN PRN Hypoglycemia Protocol Famotidine 10 mg 05/01/20 23:00 05/04/20 04:46 Famotidine 20 Mg/2 Ml Inj IV Not Given BID [facility] Heparin Sodium (Porcine) 5,000 unit 05/03/20 10:45 05/04/20 10:47 Heparin 5,000 Unit/1 Ml Vial SUB-Q 5,000 unit Q12HR [facility] Administration Ceftriaxone Sodium 2 gm in 100 mls @ 200 mls/hr 05/01/20 23:00 05/04/20 04:47 Rocephin/Ns 2 Gm/100 Ml IV 05/05/20 22:29 Not Given Q24HR@2200 [facility] Protocol Sodium Bicarbonate 50 meq/ 1,050 mls @ 75 mls/hr 05/03/20 11:00 Dextrose IV DIRECT [facility] Insulin Human Lispro 0 unit 05/02/20 07:30 05/04/20 07:30 Insulin Lispro 100 Unit/Ml Vial 3 Ml SUB-Q Not Given ACHS [facility] Protocol Ondansetron HCl 4 mg 05/01/20 22:21 Ondansetron 4 Mg/2 Ml Inj IV Q8H PRN Nausea And Vomiting Sodium Chloride 10 ml 05/01/20 23:00 05/04/20 10:42 Sodium Chloride 0.9% 10 Ml Flush Syringe IV 10 ml BID KIMMY Administration Sodium Chloride 10 ml 05/01/20 22:21 Sodium Chloride 0.9% 10 Ml Flush Syringe IV PRN PRN LINE FLUSH Nutrition/Malnutrition Assess - Dietary Evaluation Nutrition/Malnutrition Findings: Nutrition Notes Start: 05/02/20 14:56 Freq: Status: Active Protocol: Document 05/03/20 09:54 (Rec: 05/03/20 10:05 [id number]) Nutrition Notes Need for Assessment generated from: second baker Initial or Follow up Assessment Current Diagnosis CKD(stage I-IV),COPD,Diabetes, Heart Failure Other Pertinent Diagnosis Dementia, acute on chronic kidney failure Current Diet Renal Labs/Tests Na 150 K 5.1 BUN 103 Cr 2.6 Pertinent Medications 1/2 NS at 100 ml/hr Height 5 ft 5 in Weight 68.967 kg Usual Body Weight 61.2 kg [place] Body Weight (kg) 56.81 BMI 25.2 Weight change and time frame 3.6% wt loss in 2 mo Weight Status Underweight Subjective/Other Information RN screen for MST, skin risk and chewing difficulty. Eusebio score 17. Per chart, pt confused. Pt did not answer phone. RN unsure of intakes or chewing difficulties. Per chart, pt has hx of poor intakes. Burn Absent Trauma Absent Minimum of two criteria No physical signs of malnutrition #1 Nutrition Diagnosis Predicted suboptimal energy intake Etiology Dementia, chronic disease, advanced age As Evidenced by Signs and Symptoms pt with hx of poor oral intakes Is patient on ventilator? No Is Patient Ambulatory and/or Out of Bed No REE-([facility]-confined to bed) [phone] Calculation Used for Recommendations [facility] Additional Notes Protein: greater than 71g (>1. 2g/kg) Fluid: 1 ml/kcal or per MD Nutrition Intervention Change Diet Order: Renal Add Supplement/Snack (indicate name/kcal Nepro daily /protein ) Provides kCal: 425 Provides Protein (gm) 19 Goal #1 Meet at least 75% of protein and energy needs via PO and ONS intakes Goal #2 Weight gain/maintanance Anticipated Discharge Needs: Renal, consistent CHO Follow-Up By: 05/06/20 Additional Comments FU for intakes, need for ONS, chewing difficulty
--- NOTE | 2020-05-04 16:06 | Progress Note ---
Assessment and Plan 1. Acute kidney injury: Suspect vasomotor TIFFANI superimposed on CKD. Urine studies and Renal US ordered. Monitor renal function. Creatinine level improving. Renal prognosis is guarded. Avoid nephrotoxic agents. Meds dosage based on GFR. 2. FEN: Hyperkalemia, improving, monitor. Aniongap metabolic acidosis, 2/2 TIFFANI / CKD, bicarb drip, monitor. Hypernatremia, hypotonic IV fluids. Monitor lytes and volume status. 3. COVID-19 infection: Pt tested positive for COVID. Decadron. 4. Dementia: Monitor. 5. Macrocytic Anemia, POA: Monitor. 6. DM type 2. 7. HTN: Monitor BP. Subjective: Patient was seen and examined at the bedside. Examination: General appearance: well-developed, appears stated age, not in distress HEENT: ATNC, pupils equal Neck: trachea midline Respiratory: ctab Heart: regular, S1S2, no murmur Gastrointestinal: soft, normoactive bowel sounds, not tender Integumentary: LE stasis changes noted, warm and dry Neurologic: alert, able to move extremities, confused Ext: no edema Subjective Date of service: 05/04/20 Principal diagnosis: TIFFANI,ESRD,Covid positive Objective - Vital Signs Vital signs: Vital Signs - 12hr 05/04/20 05/04/20 05/04/20 04:15 10:00 11:10 Temperature 98.8 F 98.0 F Pulse Rate 76 76 Respiratory 16 18 Rate Blood Pressure 150/57 170/53 O2 Sat by Pulse 96 98 95 Oximetry - Lab 05/02/20 05:34 05/05/20 04:38 Most recent lab results Calcium 8.8 mg/dL (8.4-10.2) 05/04/20 04:46 Medications & Allergies - Medications Allergies/Adverse Reactions: Allergies No Known Allergies Allergy (Unverified 01/02/14 17:18) Home Medications: Home Medications Medication Instructions Recorded Confirmed Last Taken Type hydrALAZINE [Apresoline TAB] 50 mg PO TID 01/02/14 05/03/20 08/15/19 History Furosemide [Lasix TAB] 20 mg PO QDAY #14 tablet 08/13/19 05/03/20 08/15/19 Rx carvediloL [Coreg] 3.125 mg PO BID 08/13/19 05/03/20 08/15/19 History Aspirin EC 81 mg PO DAILY 08/16/19 05/03/20 08/15/19 History Clopidogrel [Plavix] 75 mg PO DAILY 08/16/19 05/03/20 08/15/19 History Aspirin [Aspirin BABY CHEW TAB] 81 mg PO QDAY #30 tab.chew 08/18/19 05/03/20 Unknown Rx Simvastatin 40 mg PO QHS #30 tablet 08/18/19 05/03/20 Unknown Rx Spironolactone [Aldactone] 25 mg PO QDAY #30 tablet 08/18/19 05/03/20 Unknown Rx carvediloL [Coreg] 6.25 mg PO BID #60 tablet 08/18/19 05/03/20 Unknown Rx Acetaminophen [Acetaminophen TAB] 650 mg PO Q4H PRN tablet 03/12/20 05/03/20 Unknown Rx Magnesium Hydroxide [Milk of 30 ml PO Q4H PRN oral.liqd 03/12/20 05/03/20 Unknown Rx Magnesia] Active Medications: Generic Name Dose Route Start Last Admin Trade Name Freq PRN Reason Stop Dose Admin Acetaminophen 650 mg 05/01/20 22:21 Acetaminophen 325 Mg Tab PO Q4H PRN Pain MILD(1-3)/Fever >100.5/MERINO Albuterol 2.5 mg 05/01/20 22:39 Albuterol 2.5 Mg/3 Ml Nebu IH Q4HRT PRN Shortness Of Breath Albuterol/Ipratropium 1 ampul 05/03/20 20:00 05/04/20 08:07 Ipratropium/Albuterol Sulfate 3 Ml Ampul.Neb IH Not Given BIDRT KIMMY Dexamethasone 8 mg 05/02/20 20:00 05/04/20 04:43 Dexamethasone 4 Mg/Ml Vial IV Not Given Q24H KIMMY Dextrose 50 ml 05/01/20 22:21 Dextrose 50% In Water (25gm) 50 Ml Syringe IV Q30MIN PRN Hypoglycemia Protocol Famotidine 10 mg 05/01/20 23:00 05/04/20 10:00 Famotidine 20 Mg/2 Ml Inj IV 10 mg BID KIMMY Administration Heparin Sodium (Porcine) 5,000 unit 05/03/20 10:45 05/04/20 10:47 Heparin 5,000 Unit/1 Ml Vial SUB-Q 5,000 unit Q12HR KIMMY Administration Ceftriaxone Sodium 2 gm in 100 mls @ 200 mls/hr 05/01/20 23:00 05/04/20 04:47 Rocephin/Ns 2 Gm/100 Ml IV 05/05/20 22:29 Not Given Q24HR@2200 [facility] Protocol Sodium Bicarbonate 50 meq/ 1,050 mls @ 75 mls/hr 05/03/20 11:00 Dextrose IV DIRECT [facility] Insulin Human Lispro 0 unit 05/02/20 07:30 05/04/20 11:30 Insulin Lispro 100 Unit/Ml Vial 3 Ml SUB-Q Not Given ACHS [facility] Protocol Ondansetron HCl 4 mg 05/01/20 22:21 Ondansetron 4 Mg/2 Ml Inj IV Q8H PRN Nausea And Vomiting Sodium Chloride 10 ml 05/01/20 23:00 05/04/20 10:42 Sodium Chloride 0.9% 10 Ml Flush Syringe IV 10 ml BID KIMMY Administration Sodium Chloride 10 ml 05/01/20 22:21 Sodium Chloride 0.9% 10 Ml Flush Syringe IV PRN PRN LINE FLUSH
[2020-05-05] MEDS: IPRATROPIUM/ALBUTEROL SULFATE 3 ML AMPUL.NEB IH SCH ×3 (06:39→19:33)
[2020-05-05 07:09] LABS: Calcium 8.4 mg/dL (8.4-10.2)
[2020-05-05] MEDS: INSULIN LISPRO 100 UNIT/ML VIAL 3 mL SUB-Q SCH ×4 (07:30→22:19)
--- NOTE | 2020-05-05 07:53 | Progress Note ---
Assessment and Plan 1. Acute kidney injury: Suspect vasomotor TIFFANI superimposed on CKD. Urine studies and Renal US ordered. Monitor renal function. Creatinine level improving. Renal prognosis is guarded. Avoid nephrotoxic agents. Meds dosage based on GFR. 2. FEN: Hyperkalemia, improving, monitor. Aniongap metabolic acidosis, 2/2 TIFFANI / CKD, bicarb drip, monitor. Hypernatremia, hypotonic IV fluids. Encourage PO fluids. Monitor lytes and volume status. 3. COVID-19 infection: Pt tested positive for COVID. Decadron. 4. Dementia: Monitor. 5. Macrocytic Anemia, POA: Monitor. 6. DM type 2. 7. HTN: Monitor BP. Subjective: Patient was seen and examined at the bedside. Examination: General appearance: well-developed, appears stated age, not in distress, restrains HEENT: ATNC, pupils equal Neck: trachea midline Respiratory: ctab Heart: regular, S1S2, no murmur Gastrointestinal: soft, normoactive bowel sounds, not tender Integumentary: LE stasis changes noted, warm and dry Neurologic: alert, able to move extremities, confused Ext: no edema Subjective Date of service: 05/05/20 Principal diagnosis: TIFFANI,ESRD,Covid positive Objective - Vital Signs Vital signs: Vital Signs - 12hr 05/04/20 05/05/20 22:03 04:22 Temperature 98.6 F 98.8 F Pulse Rate 82 94 H Respiratory 16 16 Rate Blood Pressure 143/65 Blood Pressure 165/60 [Left] O2 Sat by Pulse 98 96 Oximetry - Lab 05/02/20 05:34 05/05/20 04:38 Most recent lab results Calcium 8.4 mg/dL (8.4-10.2) 05/05/20 04:38 Medications & Allergies - Medications Allergies/Adverse Reactions: Allergies No Known Allergies Allergy (Unverified 01/02/14 17:18) Home Medications: Home Medications Medication Instructions Recorded Confirmed Last Taken Type hydrALAZINE [Apresoline TAB] 50 mg PO TID 01/02/14 05/03/20 08/15/19 History Furosemide [Lasix TAB] 20 mg PO QDAY #14 tablet 08/13/19 05/03/20 08/15/19 Rx carvediloL [Coreg] 3.125 mg PO BID 08/13/19 05/03/2020 History Aspirin EC 81 mg PO DAILY 08/16/19 05/03/20 08/15/19 History Clopidogrel [Plavix] 75 mg PO DAILY 08/16/19 05/03/20 08/15/19 History Aspirin [Aspirin BABY CHEW TAB] 81 mg PO QDAY #30 tab.chew 08/18/19 05/03/20 Unknown Rx Simvastatin 40 mg PO QHS #30 tablet 08/18/19 05/03/20 Unknown Rx Spironolactone [Aldactone] 25 mg PO QDAY #30 tablet 08/18/19 05/03/20 Unknown Rx carvediloL [Coreg] 6.25 mg PO BID #60 tablet 08/18/19 05/03/20 Unknown Rx Acetaminophen [Acetaminophen TAB] 650 mg PO Q4H PRN tablet 03/12/20 05/03/20 Unknown Rx Magnesium Hydroxide [Milk of 30 ml PO Q4H PRN oral.liqd 03/12/20 05/03/20 Unknown Rx Magnesia] Active Medications: Generic Name Dose Route Start Last Admin Trade Name Freq PRN Reason Stop Dose Admin Acetaminophen 650 mg 05/01/20 22:21 Acetaminophen 325 Mg Tab PO Q4H PRN Pain MILD(1-3)/Fever >100.5/MERINO Albuterol 2.5 mg 05/01/20 22:39 Albuterol 2.5 Mg/3 Ml Nebu IH Q4HRT PRN Shortness Of Breath Albuterol/Ipratropium 1 ampul 05/03/20 20:00 05/05/20 07:48 Ipratropium/Albuterol Sulfate 3 Ml Ampul.Neb IH 1 ampul BIDRT KIMMY Administration Dexamethasone 8 mg 05/02/20 20:00 05/04/20 22:50 Dexamethasone 4 Mg/Ml Vial IV 8 mg Q24H KIMMY Administration Dextrose 50 ml 05/01/20 22:21 Dextrose 50% In Water (25gm) 50 Ml Syringe IV Q30MIN PRN Hypoglycemia Protocol Famotidine 10 mg 05/01/20 23:00 05/04/20 23:08 Famotidine 20 Mg/2 Ml Inj IV 10 mg BID KIMMY Administration Heparin Sodium (Porcine) 5,000 unit 05/03/20 10:45 05/04/20 23:08 Heparin 5,000 Unit/1 Ml Vial SUB-Q Not Given Q12HR [facility] Ceftriaxone Sodium 2 gm in 100 mls @ 200 mls/hr 05/01/20 23:00 05/04/20 22:50 Rocephin/Ns 2 Gm/100 Ml IV 05/05/20 22:29 200 mls/hr Q24HR@2200 KIMMY Administration Protocol Sodium Bicarbonate 50 meq/ 1,050 mls @ 75 mls/hr 05/03/20 11:00 05/05/20 02:28 Dextrose IV 75 mls/hr DIRECT KIMMY Administration Insulin Human Lispro 0 unit 05/02/20 07:30 05/04/20 22:51 Insulin Lispro 100 Unit/Ml Vial 3 Ml SUB-Q Not Given ACHS [facility] Protocol Ondansetron HCl 4 mg 05/01/20 22:21 Ondansetron 4 Mg/2 Ml Inj IV Q8H PRN Nausea And Vomiting Sodium Chloride 10 ml 05/01/20 23:00 05/04/20 22:51 Sodium Chloride 0.9% 10 Ml Flush Syringe IV 10 ml BID KIMMY Administration Sodium Chloride 10 ml 05/01/20 22:21 Sodium Chloride 0.9% 10 Ml Flush Syringe IV PRN PRN LINE FLUSH
[2020-05-05] MEDS: HEPARIN 5,000 UNIT/1 ML VIAL SUB-Q SCH ×2 (09:23→22:18)
[2020-05-05] MEDS: FAMOTIDINE 10 MG TAB PO SCH ×2 (09:24→22:19)
[2020-05-05] MEDS: FAMOTIDINE 20 MG/2 ML INJ IV SCH (09:24)
[2020-05-05] MEDS ORDERED: DEXAMETHASONE 4 MG TAB PO SCH (10:00)
--- NOTE | 2020-05-05 11:30 | Discharge Summary ---
Providers - Providers Date of Admission: 05/01/20 21:47 Attending physician: LUX MCFARLAND MD 05/01/20 21:27 Consult to Physician [CONS] Urgent Comment: Consulting Provider: RAVINDER SPENCER Physician Instructions: Reason For Exam: acute on chronic renal insuf, hyperkalemia 05/01/20 22:28 Consult to Dietitian/Nutrition [CONS] Routine Physician Instructions: Reason For Exam: Reason for Consult: Diet education 05/04/20 09:33 PICC Line Placement [Consult to PICC Line RN] [CONS] Routine Reason For Exam: Unable to get IV access Type Line:: PICC 05/05/20 10:29 Speech Therapy Evaluation and Treat [CONS] Routine Reason For Exam: swallow evaluation Primary care physician: INVOICE CODER Hospitalization Reason for admission: Hypernatremia Condition: Stable Hospital course: 79-year-old female with a past medical history of chronic renal insufficiency, type 2 diabetes, COPD, CHF, and dementia was [facility] the emergency room from [facility] with abnormal labs. Patient had lab results from today showing hyperkalemia worsening renal insufficiency. Patient had labs performed yesterday showing potassium 5.8, BUN 74, creatinine 4.4, sodium 168, chloride 134 and was subsequently treated with 2 L of normal saline at 100 mL/h, Kayexalate 15 g x 2 and her Lasix and spironolactone were put on hold. Labs were repeated today and revealed a potassium of 6.4, BUN 116, creatinine 3.0, sodium 141, chloride 112 despite treatment provided at [facility] therefore patient was sent to the ER for evaluation. Patient was also noted to have a hemoglobin of 7.2. MI also documented a secondary diagnosis of COVID via PCR on 04/21. Chest x-ray performed April 29 did not show any acute cardiopulmonary disease. Patient seen and examined a little feisty with team I did discuss with the family discussed her overall mental status. I did call the facility and per [facility] 25-30% OF MEAL WITH SUPPLEMENTATION. Follow COVID-19 her oxygen saturation is stable. No evidence of hypoxia. I also recommended repeat sodium level in 3 days due to the hyponatremia. Discussed with product safety tester okay to discharge. Family and also receiving facility needs to discuss further considering patient's fluid status. Have discontinued the Lasix at this time. And also spironolactone. BMI is 25.3 Discussed with family and Nephrology Will discharge, If this worsens then should consider PEG Repeat Sodium level in 3 days. (1) Metabolic encephalopathy (2) Hyperosmolality and hypernatremia (3) Debility (4) Coronavirus infection (5) Acute on chronic kidney failure (6) Acidosis (7) Advance care planning Disposition: DC/[place]-03 [facility] CERT Time spent for discharge: 35 minutes Core Measure Documentation - Palliative Care Palliative Care/ Comfort Measures: Not Applicable - Core Measures Any of the following diagnoses?: none Exam - Physical Exam Narrative exam: VITAL SIGNS: Reviewed. GENERAL: The patient appears normally developed, Vital signs as documented. HEAD: No signs of head trauma. EYES: Pupils are equal. Extraocular motions intact. EARS: Hearing grossly intact. MOUTH: Oropharynx is normal. NECK: No adenopathy, no JVD. CHEST: Chest with clear breath sounds bilaterally. No wheezes, rales, or rhonchi. CARDIAC: Regular rate and rhythm. S1 and S2, without murmurs, gallops, or rubs. VASCULAR: No Edema. Peripheral pulses normal and equal in all extremities. ABDOMEN: Soft, non tender and non distended. No rebound or guarding, and no masses palpated. Bowel Sounds normal. MUSCULOSKELETAL: Good range of motion of all major joints. Extremities without clubbing, cyanosis or edema. NEUROLOGIC EXAM: Alert awake, oriented to person and place but with underlying dementia no focal sensory or strength deficits. Speech normal. PSYCHIATRIC: Mood normal. SKIN: detail exam as documented in skin assessment - Constitutional Vitals: Temp Pulse Resp BP Pulse Ox 98.8 F 112 H 22 143/65 96 05/05/20 04:22 05/05/20 07:48 05/05/20 07:48 05/05/20 04:22 05/05/20 04:22 Plan Activity: advance as tolerated, fall precautions Diet: low fat, per dietitian instruction, advance as tolerated Special Instructions: record daily BP diary, physical therapy, occupational therapy Additional Instructions: Repeat BMP in 3 days Follow up with: BRISSA SAGE MD [Primary Care Provider] - 3-5 Days RAVINDER SPENCER MD [Staff Physician] - 7 Days RENETTA VARGAS MD [Staff Physician] - 7 Days Prescriptions: dexAMETHasone [Dexamethasone] 6 mg PO DAILY #6 tablet Ipratropium/Albuterol Sulfate [DUONEB *Not for PRN Use*] 1 ampul IH BIDRT #30 ampul.neb
--- NOTE | 2020-05-05 13:54 | Ultrasound Report ---
ULTRASOUND RENAL INDICATION / CLINICAL INFORMATION: Acute renal failure.. COMPARISON: 03/08/2020 FINDINGS: RIGHT KIDNEY: Length = 7.7 cm. [normal > 9 cm] - Parenchymal Thickness = 1.2 cm. [normal > 1.5 cm] - Echogenicity: Increased - Hydronephrosis: None. - Cyst or mass: No significant abnormality. - Stones: None seen. LEFT KIDNEY: Length = 9.7 cm. [normal > 9 cm] - Parenchymal Thickness = 1.2 cm. [normal > 1.5 cm] - Echogenicity: Increased - Hydronephrosis: None. - Cyst or mass: No significant abnormality. - Stones: None seen. URINARY BLADDER: No significant abnormality. Polyploid mass in the bladder is not demonstrated on tod ay's exam. Correlate with history. FREE FLUID: None. ADDITIONAL FINDINGS: None. IMPRESSION: Slightly atrophic right kidney. Both kidneys are slightly echogenic consistent with medical renal disease or chronic renal parenchyma l disease. No hydronephrosis. Signer Name: Roger Mccullough Jr, MD Signed: 05/05/2020 1:50 PM Workstation Name: [id number]
[2020-05-05 21:42] VITALS: BP 150/58
[2020-05-05] MEDS: cefTRIAXone/NS 2 GM/100 ML 2 GM/100 ML BAG IV SCH (22:19)
== END 2020-05-05 22:25 | DRG 177 ==
LOC: ED 19:21 → IMCU 21:47 → 3A 05-02 19:33
PROVIDERS: ADMIT Hospitalist; ATTEND Internal Medicine
PROC: 03JY3ZZ Inspection of Upper Artery, Percutaneous Approach (ICD-10-PCS; principal; 2020-05-04)
DX: U07.1 COVID-19 (principal); G93.41 Metabolic encephalopathy; N17.0 Acute kidney failure with tubular necrosis; E87.0 Hyperosmolality and hypernatremia; E87.5 Hyperkalemia; F03.90 Unspecified dementia, unspecified severity, without behavioral disturbance, psychotic disturbance, mood disturbance, and anxiety; E78.00 Pure hypercholesterolemia, unspecified; J44.9 Chronic obstructive pulmonary disease, unspecified; I12.9 Hypertensive chronic kidney disease with stage 1 through stage 4 chronic kidney disease, or unspecified chronic kidney disease; E11.22 Type 2 diabetes mellitus with diabetic chronic kidney disease; D53.9 Nutritional anemia, unspecified; N18.9 Chronic kidney disease, unspecified; E86.0 Dehydration; Z79.899 Other long term (current) drug therapy; Z79.82 Long term (current) use of aspirin; Z83.3 Family history of diabetes mellitus
CPT/HCPCS: 36415; 71045; 76770; 80048; 80053; 82962; 85007; 85025; 85610; 85730; 86850; 86900; 86901; 87040; 87641; 93005; 94640; 94644; G0378; J0456; J0610; J0696; J1100; J1644; J1815; J7030; J7070; J8540; U0003

== ENCOUNTER 2020-05-12 06:43 | Emergency (ER) | payer MEDICARE ==
[2020-05-12] MEDS ORDERED: NORepinephrine/NS 4 MG-250 ML 4 MG/250 ML BAG IV ONE (07:18)
[2020-05-12] MEDS ORDERED: SODIUM CHLORIDE 0.9% 1000 ML 1,000 ML IV ONE (07:28)
[2020-05-12] MEDS ORDERED: LIP THERAPY VASELINE TP PRN (07:30)
[2020-05-12] MEDS ORDERED: MINERAL OIL/PETROLATUM, WHITE OPHTH OINT 3.5 GM OU PRN (07:30)
[2020-05-12] MEDS ORDERED: NORepinephrine/NS 4 MG-250 ML 4 MG/250 ML BAG IV SCH (07:38)
--- NOTE | 2020-05-12 07:50 | Emergency Department Report ---
HPI - General Time Seen by Provider: 05/12/20 07:26 - HPI HPI: This is an 79-year-old -[place] female presents to the emergency department via EMS from [facility] with the initial report of altered mental status. EMS report also states the patient has a GCS of 3. Patient had a blood sugar of 79 in route. The patient arrives on a nonrebreather and as the patient was being brought to bed #41 she appeared to lose her pulse and go into cardiac arrest. ACLS protocol was initiated including intubation, chest compressions, a left EJ peripheral line and right lower extremity intraosseous line were placed and the patient began receiving ACLS medications including epinephrine and bicarb. There was a return of spontaneous circulation but the patient went into V. tach and appeared unstable so she was given a 200 J defibrillation and a dose of amiodarone. Shortly afterwards the patient once again had a loss of pulse and ACLS protocol was initiated. 1 round was done until there was once again return of spontaneous circulation. The patient apparently was positive for COVID-19 on 04/21. She was admitted here on 05/01 for abnormal labs and worsening renal insufficiency. She has a past medical history of chronic kidney disease, grj-[id number] d iabetes, CHF and dementia. ED Past Medical Hx - Past Medical History Hx Hypertension: Yes Hx Congestive Heart Failure: Yes Hx Diabetes: Yes Hx Renal Disease: Yes Hx COPD: Yes Hx Dementia: Yes Additional medical history: high cholesterol - Surgical History Additional Surgical History: "heart surgery" - Social History Smoking Status: Current Some Day Smoker - Medications Home Medications: Home Medications Medication Instructions Recorded Confirmed Last Taken Type hydrALAZINE [Apresoline TAB] 50 mg PO TID 01/02/14 05/03/20 08/15/19 History carvediloL [Coreg] 3.125 mg PO BID 08/13/19 05/03/20 08/15/19 History Clopidogrel [Plavix] 75 mg PO DAILY 08/16/19 05/03/20 08/15/19 History Aspirin [Aspirin BABY CHEW TAB] 81 mg PO QDAY #30 tab.chew 08/18/19 05/03/20 Unknown Rx Simvastatin 40 mg PO QHS #30 tablet 08/18/19 05/03/20 Unknown Rx Acetaminophen [Acetaminophen TAB] 650 mg PO Q4H PRN tablet 03/12/20 05/03/20 Unknown Rx Magnesium Hydroxide [Milk of 30 ml PO Q4H PRN oral.liqd 03/12/20 05/03/20 Unknown Rx Magnesia] Ipratropium/Albuterol Sulfate 1 ampul IH BIDRT #30 ampul.neb 05/05/20 Unknown Rx [DUONEB *Not for PRN Use*] dexAMETHasone [Dexamethasone] 6 mg PO DAILY #6 tablet 05/05/20 Unknown Rx ED Review of Systems ROS: Stated complaint: AMS Other details as noted in HPI Comment: Unobtainable due to pts medical conditions Physical Exam - Physical Exam Physical Exam: GENERAL: Patient is ill-appearing and unresponsive. HENT: Normocephalic. Atraumatic. EYES: Pupils are fixed and dilated. NECK: Supple. Trachea appears midline. CHEST/LUNGS: There are no spontaneous respirations. HEART/CARDIOVASCULAR: There are no spontaneous heart sounds. ABDOMEN: Abdomen is soft. There is no abdominal distention. SKIN: Skin is cool but dry. NEURO: Unresponsive. Does not withdraw to painful stimuli. Does not follow any commands. MUSCULOSKELETAL: There is no obvious deformity. There is no evidence of acute injury. No palpable femoral or radial pulses. ED Course - Reevaluation(s) Reevaluation #1: I was just called again to the patient's bedside at 8:19 AM as the patient appears to have lost her pulse again. ACLS protocol was initiated. The patient appears in asystole. She received bag valve ventilation, chest compressions. She had 2 doses of epinephrine and a dose of sodium bicarbonate. The patient currently has a Levophed and epinephrine drip going. After 3 rounds of ACLS protocol the patient still remains in asystole. Time of called at 8:28 AM. 05/12/20 08:31 - Procedure Description Procedures done: An intraosseous line was placed in the proximal medial tibia. Bone marrow and blood was aspirated. The line was flushed and charged and flows well. - Intubation Time Out Performed: No Laryngoscope: other (Valdez scope) Size: 4 ET Tube Size: 7.5 Tube Secured Depth (cm): 24 Tube Secured Location: lips Tube Placement Confirmation: visualized tube passing t, equal breath sounds bilat, confirmation by capnometr Intubation Complications: none ED Medical Decision Making - Lab Data Result diagrams: 05/12/20 07:59 05/12/20 07:59 - Radiology Data Radiology results: image reviewed interpreted by me: Chest x-ray shows appropriate intubation with the endotracheal tube just below the clavicular heads. No obvious pneumonia. No pneumothorax. - Medical Decision Making This patient initially presented from her senior care facility with the complaint of altered mental status and EMS call was that the patient had a GCS of 3. Upon the patient's arrival to the emergency department she appeared to decompensate even further and went pulseless. ACLS was initiated with bag valve ventilation and chest compressions. I intubated the patient as per the procedure section. I placed a right lower extremity intraosseous line and the patient began receiving ACLS medications including epinephrine and sodium bicarbonate. After 2 rounds of ACLS there was return of spontaneous circulation. Shortly after ROSC the patient went into V. tach. She was defibrillated and went back into a sinus rhythm and maintained her pulse. The patient was given a loading dose of amiodarone. A few minutes later the patient once again went pulseless and ACLS protocol was once again initiated. After 1 round of ACLS there was once again ROSC. At this point we were able to draw blood for labs, do a chest x-ray, and began to do our evaluation. The patient was on 2 different pressors, Levophed and an epinephrine drip. At around 8:19 AM the patient once again lost her pulse. She appeared to be in asystole. We did 3 more rounds of ACLS protocol without any ROSC. There was no palpable carotid, femoral or radial pulses. The patient's pupils appeared fixed and dilated. A bedside ultrasound was used and there was no cardiac movement seen. At this point time of was called at 8:28 AM. Patient had an Accu-Chek done with EMS that showed a blood sugar of 79. Otherwise I did not have any of the lab results back at the time of . Critical Care Time: Yes Critical care time in (mins) excluding proc time.: 35 Critical care attestation.: If time is entered above; I have spent that time in minutes in the direct care of this critically ill patient, excluding procedure time. Critical care time was spent on this patient in doing her initial evaluation, multiple reevaluations, supervision of ACLS protocol. Critical Care Time: 35 minutes ED Disposition Clinical Impression: Cardiac arrest Acute respiratory failure Qualifiers: Respiratory failure complication: unspecified whether with hypoxia or hypercapnia Qualified Code(s): J96.00 - Acute respiratory failure, unspecified whether with hypoxia or hypercapnia Disposition: DC-20 Is pt being admited?: No Time of Disposition: 13:08
[2020-05-12] MEDS ORDERED: EPINEPHrine 1 MG/1 ML 8 MG in SODIUM CHLORIDE 0.9% 250ML 242 ML IV ONE (08:00)
[2020-05-12] MEDS ORDERED: AMIODARONE 900 MG in DEXTROSE 5% IN WATER 482 ML IV SCH (08:00)
--- NOTE | 2020-05-12 08:10 | XRay Report ---
CHEST 1 VIEW 05/12/2020 7:12 AM INDICATION / CLINICAL INFORMATION: ETT placement. COMPARISON: 05/01/2020 FINDINGS: SUPPORT DEVICES: ET tube has been placed with the tip about 3 cm above the gabo. HEART / MEDIASTINUM: Stable. LUNGS / PLEURA: No significant pulmonary or pleural abnormality. No pneumothorax. ADDITIONAL FINDINGS: No significant additional findings. IMPRESSION: 1. Endotracheal tube in expected position. Signer Name: Juan Woods MD Signed: 05/12/2020 8:05 AM Workstation Name: [id number]
[2020-05-12 08:17] LABS: Mean Corpuscular HGB Conc 29 % (30-34); Red Blood Count 1.57 M/mm3 (3.65-5.03); Red Cell Distribution Width 16.8 % (13.2-15.2)
[2020-05-12 08:21] LABS: INR 2.04 (0.87-1.13)
[2020-05-12 08:22] LABS: Partial Thromboplastin Time 48.1 Sec. (24.2-36.6)
[2020-05-12] MEDS ORDERED: EPINEPHrine 1 MG/10 ML SYRINGE IV ONE ×2 (08:22→08:27)
[2020-05-12 08:32] LABS: Mean Corpuscular Volume 111 fl (79-97)
[2020-05-12 08:38] LABS: Hematocrit 17.5 % (30.3-42.9); Hemoglobin 5.1 gm/dl (10.1-14.3); Platelet Count 12 K/mm3 (140-440)
[2020-05-12 08:46] LABS: Albumin 1.3 g/dL (3.9-5)
[2020-05-12 08:49] LABS: Calcium 12.1 mg/dL (8.4-10.2)
[2020-05-12 08:57] LABS: Chol/HDL Ratio 6.22 %
[2020-05-12 10:41] VITALS: BP 65/30
[2020-05-12 11:29] LABS: Myelocytes # (Manual) 0.1 K/mm3; Total Cells Counted 100
[2020-05-12 11:30] LABS: Macrocytosis 1+; Platelet Estimate Consistent w Auto
== END 2020-05-12 13:15 ==
LOC: ED 06:43
DX: I46.9 Cardiac arrest, cause unspecified (principal); J96.00 Acute respiratory failure, unspecified whether with hypoxia or hypercapnia; I11.0 Hypertensive heart disease with heart failure; I50.9 Heart failure, unspecified; E11.9 Type 2 diabetes mellitus without complications; E78.00 Pure hypercholesterolemia, unspecified; J44.9 Chronic obstructive pulmonary disease, unspecified; F03.90 Unspecified dementia, unspecified severity, without behavioral disturbance, psychotic disturbance, mood disturbance, and anxiety; F17.200 Nicotine dependence, unspecified, uncomplicated; Z79.899 Other long term (current) drug therapy; Z98.890 Other specified postprocedural states
CPT/HCPCS: 31500; 36415; 36680; 71045; 80053; 80061; 82140; 82550; 84443; 84484; 85007; 85025; 85610; 85730; 87040; 92950; 94002; 96365; 96375; 96376; 99291; J0171; J0282; J7050; J7060; 80320; 96360; G0480